=== PATIENT | male | born 1955 | race Caucasian/White ===

== ENCOUNTER 2018-05-02 09:30 | Emergency (ER) | payer BC, OTHER ==
[~2018-05-02] VITALS: Ht 185.4 cm; Wt 88.5 kg
[~2018-05-02 09:30] MED LIST: AMLO5TAB13 PO; LISI-275 PO
[2018-05-02] MEDS ORDERED: SODIUM CHLORIDE 0.9% 500 ML IVB ONE (10:27)
[2018-05-02] MEDS ORDERED: KETOROLAC TROMETH 30 MG/ML 1ML VIAL IV ONE (10:30)
[2018-05-02 11:31] LABS: Urine Bacteria NONE SEEN /hpf (None Seen); Urine Blood Negative /uL (Negative); Urine Mucus FEW (None Seen); Urine WBC 3 /hpf (0 - 3)
[2018-05-02 11:48] LABS: Basophils # (auto) 0.1 uL; Basophils % (auto) 0.9 % (0.0-2.0); Eosinophils # (auto) 0 uL; Eosinophils % (auto) 0.4 % (0.0-7.0); Hematocrit 52.6 % (41.0-53.0); Hemoglobin 17.3 g/dL (13.5-17.5); Lymphocytes # (auto) 0.6 uL; Lymphocytes % (auto) 5.2 % (10.0-50.0); Mean Corpuscular Hemoglobin 30.4 pg (28.0-32.0); Mean Corpuscular Hgb Conc. 32.8 g/dL (32.0-36.0); Mean Corpuscular Volume 92.6 fL (80.0-100.0); Monocytes # (auto) 1.8 uL; Monocytes % (auto) 16.4 % (0.0-12.0); Neutrophils # (auto) 8.6 uL; Neutrophils % (auto) 77.1 % (37.0-80.0); Platelet Count (auto) 203 10^3/uL (140-450); Red Blood Cells 5.68 10^6/uL (4.5-5.90); Red Cell Distribution Width 16.3 % (11.8-14.3); White Blood Cell 11.2 10^3/uL (4.4-10.8)
[2018-05-02 12:27] LABS: Potassium 3.9 mmol/L (3.5-5.1)
[2018-05-02 12:28] LABS: Albumin 3.4 g/dL (3.4-5.0); BUN/Creatinine Ratio 18.9; Bilirubin, Total 0.9 mg/dL (0.2-1.0); Calcium 8.5 mg/dL (8.5-10.1); Total Protein 7.1 g/dL (6.4-8.2)
[2018-05-02] MEDS ORDERED: KETOROLAC TROMETH 60MG/2ML VIAL IM ONE ×2 (13:24→13:30)
[2018-05-02 13:37] VITALS: BP 145/94
== END 2018-05-02 14:13 | disposition home or self-care (01) ==
LOC: ER 09:30
DX: M54.5 Low back pain (principal); J44.9 Chronic obstructive pulmonary disease, unspecified; F12.90 Cannabis use, unspecified, uncomplicated; R11.0 Nausea; R50.9 Fever, unspecified; Z79.899 Other long term (current) drug therapy
CPT/HCPCS: 36415; 74176; 80053; 81001; 83690; 84484; 85025; 93005; 96372; 99285; J1885; J7030

== ENCOUNTER 2019-01-12 02:13 | Inpatient (IN) | payer BC ==
[~2019-01-12] VITALS: Ht 185.4 cm; Wt 110.2 kg
[2019-01-12] MEDS ORDERED: ALBUTEROL SULF 2.5 MG/0.5ML(0.5%) NEB SOLN HHN STA (02:27)
[2019-01-12] MEDS ORDERED: IPRATROPIUM BROM 0.5 MG/2.5ML INH SOL NEB ONE (02:30)
[2019-01-12 03:38] LABS: Hematocrit 41.4 % (41.0-53.0); Hemoglobin 13.2 g/dL (13.5-17.5); Mean Corpuscular Hemoglobin 27.3 pg (28.0-32.0); Mean Corpuscular Volume 85.5 fL (80.0-100.0); Platelet Count (auto) 145 10^3/uL (140-450); Red Blood Cells 4.84 10^6/uL (4.5-5.90); Red Cell Distribution Width 19.3 % (11.8-14.3); White Blood Cell 10.6 10^3/uL (4.4-10.8)
[2019-01-12 03:43] LABS: Band Neutrophils % (manual) 0; Basophils % (manual) 0 (0.0-2.0); Blast Cells 0; Eosinophils % (manual) 0 (0-7); Metamyelocytes % 0; Myelocytes % 0; Promyelocytes % 0; Reactive Lymphocytes 0
[2019-01-12 03:56] LABS: Albumin 3.3 g/dL (3.4-5.0); Anion Gap 7 (5-15); Blood Urea Nitrogen 53 mg/dL (7-18); Carbon Dioxide 31 mmol/L (21-32); Chloride 108 mmol/L (98-107); Glucose 112 mg/dL (74-106); Potassium 4.4 mmol/L (3.5-5.1); Sodium 146 mmol/L (136-145)
[2019-01-12 03:58] LABS: Alanine Aminotransferase 62 U/L (16-61); Aspartate Aminotransferase 44 U/L (15-37); BUN/Creatinine Ratio 34.9; GFR African American 60 mL/min; GFR Non-African American 49 mL/min
[2019-01-12 04:01] LABS: Alkaline Phosphatase 129 U/L (45-117); Bilirubin, Total 0.9 mg/dL (0.2-1.0); Total Protein 6.3 g/dL (6.4-8.2)
[2019-01-12 04:09] LABS: Lymphocytes % (manual) 4 (10.0-50.0); Monocytes % (manual) 3 (0-12)
[2019-01-12 04:44] LABS: Urine Bacteria NONE SEEN /hpf (None Seen); Urine Blood Negative /uL (Negative); Urine Specific Gravity 1.009 (1.001-1.035); Urine WBC <1 /hpf (0 - 3)
[2019-01-12] MEDS ORDERED: cefTRIAXone 1GM/50ML D5W 50 ML IV ONE (07:30)
[2019-01-12] MEDS ORDERED: FUROSEMIDE 40 MG/4 ML VIAL IV ONE (07:30)
[2019-01-12] MEDS ORDERED: AZITHROMYCIN 500MG/ 250ML 250 ML IV ONE (07:30)
[2019-01-12] MEDS ORDERED: DIGOXIN (250MCG/ML) 2 ML AMPULE IV ONE (08:30)
[2019-01-12] MEDS ORDERED: NITROGLYCERIN 0.4 MG SL TAB SL PRN (08:30)
[2019-01-12] MEDS ORDERED: ONDANSETRON HCL 4 MG/2 ML VIAL IV PRN (08:30)
[2019-01-12] MEDS ORDERED: MORPHINE SULF INJ 2 MG/ML SYRINGE 1ML IV PRN (08:30)
[2019-01-12] MEDS ORDERED: ACETAMINOPHEN 500 MG TAB PO PRN (08:30)
[2019-01-12] MEDS ORDERED: ALBUTEROL SULF 2.5 MG/0.5ML(0.5%) NEB SOLN ONE (08:39)
[2019-01-12] MEDS ORDERED: BUDESONIDE (INHALATION) 0.5 MG/2 ML NEB ONE (08:39)
[2019-01-12] MEDS ORDERED: IPRATROPIUM BROM 0.5 MG/2.5ML INH SOL ONE (08:39)
[2019-01-12 09:08] LABS: Alcohol, Urine < 3.0 mg/dL (0-5); Amphetamine Screen, Urine POSITIVE (NEGATIVE); Barbiturate Scree,Urine NEGATIVE (NEGATIVE); Benzodiazephine Screen, Urine NEGATIVE (NEGATIVE); Cannabinoid Screen, Urine POSITIVE (NEGATIVE); Cocaine Screen, Urine NEGATIVE (NEGATIVE); Phencyclidine Screen, Urine NEGATIVE (NEGATIVE)
[2019-01-12 09:16] LABS: Opiate Scree,Urine NEGATIVE (NEGATIVE)
[2019-01-12] MEDS: cefTRIAXone 1GM/50ML D5W 50 ML IV SCH (09:28)
[2019-01-12 09:35] VITALS: BP 131/90
[2019-01-12] MEDS: FUROSEMIDE 20 MG/2 ML VIAL IV SCH (09:52)
[2019-01-12] MEDS ORDERED: IPRATROPIUM BROM 0.5 MG/2.5ML INH SOL NEB SCH (10:00)
[2019-01-12] MEDS ORDERED: ALBUTEROL SULF 2.5 MG/0.5ML(0.5%) NEB SOLN NEB SCH (10:00)
[2019-01-12 10:30] VITALS: BP 124/105
[2019-01-12] MEDS: FAMOTIDINE 20 MG TAB PO SCH (11:00)
[2019-01-12] MEDS: ASPirin 81 mg TAB PO SCH (11:00)
[2019-01-12] MEDS: amLODIPine BESYLATE 5 MG TAB PO SCH (11:01)
[2019-01-12] MEDS: CARVEDILOL 3.125 MG TAB PO SCH ×2 (11:01→22:00)
[2019-01-12 13:45] VITALS: BP 130/90
[2019-01-12] MEDS ORDERED: BUMETANIDE 2.5mg/10ml (0.25 mg/ml) INJ IV ONE (16:00)
[2019-01-12 16:45] VITALS: BP 112/77
[2019-01-12] MEDS: RIVAROXABAN 20 MG TAB PO SCH (19:26)
[2019-01-12 19:50] VITALS: BP 121/61
--- NOTE | 2019-01-12 19:50 | NUR ---
NO IV ACCESS Received report fro DIANE Chung that patient has no IV access. After one attempt by DIANE Chung and one attempt by this RN, Charge nurse, DIANE Gonzalez was notified and will attempt to obtain IV access.
--- NOTE | 2019-01-12 19:50 | NUR ---
Opening Shift Note Assumed care of patient, awake and alert. Currently on 4lpm via NC with No S/S of distress/SOB. Patient reports 7/10 back pain described to be chronic. Declines pain medication at this time. Discussed POC with patient and instructed to call for assist PRN. Bed is in low locked position with side rails up x2. Will continue to monitor for changes Q1hr and PRN.
[2019-01-12 21:30] VITALS: BP 121/81
--- NOTE | 2019-01-12 21:31 | NUR ---
SOB Patient c/o SOB. Nasal cannula is currently off. Replaced N/C and instructed patient to sit up at edge of bed. Spo2 is 92% on 4lpm. Expiratory rhonchi noted. RT notified. Neb treatment to be administered at 2200.
--- NOTE | 2019-01-12 22:00 | NUR ---
Patient is laying comfortably in bed on 4lpm O2 via N/C. Reports that SOB has resolved. Encouraged to call for assistance if needed. Call hargrove is within reach.
[2019-01-12] MEDS: BUDESONIDE (INHALATION) 0.5 MG/2 ML NEB NEB SCH (22:03)
--- NOTE | 2019-01-13 01:30 | NUR ---
Patient agitated. Removed gown, laboratory monitor, Nasal canula and pressure dressing on right forearm covering a failed IV insertion site. POC discussed with patient. Patient cleaned and placed in clean gown. monitoring coordinator and N/C replaced. New pressure dressing applied and linens changed. Agitation is lessening. Will continue to monitor and reinforce POC with patient.
[2019-01-13] MEDS ORDERED: ALBUTEROL SULF 2.5 MG/0.5ML(0.5%) NEB SOLN NEB PRN (02:00)
[2019-01-13] MEDS ORDERED: IPRATROPIUM BROM 0.5 MG/2.5ML INH SOL NEB PRN (02:00)
--- NOTE | 2019-01-13 02:10 | NUR ---
IV insertion IV access obtained by DIANE Calvo, via clean sterile technique by inserting 22 gauge catheter at right hand and 20 guage at left forearm. IVs secured properly. No trauma to site. Patient tolerated well.
[2019-01-13] MEDS: HYDROcodone-ACET 5/325MG TAB PO PRN ×2 (02:59→20:34)
--- NOTE | 2019-01-13 03:30 | NUR ---
Patient confused and mildly agitated. Out of bed and sitting in chair, after removing gown, night monitor and nasal cannula. Patient reoriented to POC. night monitor and nasal canula replaced, new gown placed on patient and linens changed. Agitation has decreased at this time.
--- NOTE | 2019-01-13 04:25 | NUR ---
Patient resting in chair at bedside. No s/s of SOB or distress. No agitation noted at this time. Will continue to monitor PRN.
[2019-01-13 04:30] VITALS: BP 114/69
[2019-01-13 07:40] LABS: INR 1.29 (0.9-1.15); Partial Thromboplastin Time 29.6 sec (23.64-32.05)
--- NOTE | 2019-01-13 07:45 | NUR ---
OPENING NOTE Assumed care of patient from NOC RN, Rupal. Patient awake and alert with no S/S of distress/SOB or pain. Nasal cannula in place, connected to 3L O2. Instructed on POC and to call for assist PRN, verbalized understanding. Bed in lowest, locked position with side rails up x2 and call light within reach. Will continue to monitor for changes Q1hr and PRN.
[2019-01-13 07:46] LABS: Basophils # (auto) 0.1 uL; Basophils % (auto) 0.6 % (0.0-2.0); Eosinophils # (auto) 0.2 uL; Eosinophils % (auto) 2.1 % (0.0-7.0); Hematocrit 37.4 % (41.0-53.0); Lymphocytes # (auto) 0.4 uL; Lymphocytes % (auto) 4.5 % (10.0-50.0); Mean Corpuscular Hemoglobin 27.1 pg (28.0-32.0); Mean Corpuscular Hgb Conc. 32.1 g/dL (32.0-36.0); Mean Corpuscular Volume 84.4 fL (80.0-100.0); Monocytes # (auto) 1.1 uL; Monocytes % (auto) 13.2 % (0.0-12.0); Neutrophils # (auto) 6.6 uL; Neutrophils % (auto) 79.6 % (37.0-80.0); Nucleated Red Blood Cells % 0.1 %; Platelet Count (auto) 115 10^3/uL (140-450); Red Blood Cells 4.43 10^6/uL (4.5-5.90); Red Cell Distribution Width 18.7 % (11.8-14.3); White Blood Cell 8.3 10^3/uL (4.4-10.8)
[2019-01-13 07:48] LABS: BUN/Creatinine Ratio 35.2
[2019-01-13 09:00] VITALS: BP 139/95
[2019-01-13] MEDS: BUDESONIDE (INHALATION) 0.5 MG/2 ML NEB NEB SCH ×2 (09:28→22:42)
--- NOTE | 2019-01-13 09:52 | NUR ---
FRENCH POLISHER Patient is becoming very anxious regarding procedure and is angry about not being able to eat. Spoke with Christina in lab coordinator regarding estimated procedure time, states should be around 1200. Patient informed.
[2019-01-13] MEDS: CARVEDILOL 3.125 MG TAB PO SCH ×2 (10:00→21:52)
[2019-01-13] MEDS: cefTRIAXone 1GM/50ML D5W 50 ML IV SCH (10:02)
[2019-01-13] MEDS: SACUBITRIL-VALSARTAN 24mg/26mg TAB PO SCH ×2 (10:03→21:50)
[2019-01-13] MEDS: FUROSEMIDE 20 MG/2 ML VIAL IV SCH (10:03)
[2019-01-13] MEDS: FAMOTIDINE 20 MG TAB PO SCH (10:03)
[2019-01-13] MEDS: amLODIPine BESYLATE 5 MG TAB PO SCH (10:03)
[2019-01-13] MEDS: ASPirin 81 mg TAB PO SCH (10:04)
--- NOTE | 2019-01-13 10:10 | NUR ---
BLEED Right arm scab bleeding. Applied gauze and coban to arm. Will continue to monitor.
--- NOTE | 2019-01-13 10:52 | NUR ---
OFF UNIT Patient taken off unit via bed for scheduled ADAM/Cardioversion. No S/S of distress noted.
[2019-01-13] MEDS ORDERED: LIDOCAINE VISCOUS 2% 15ML UD PO ONE (11:15)
[2019-01-13] MEDS ORDERED: fentaNYL CITRATE 100 MCG/2 ML VL IV ONE (11:15)
[2019-01-13] MEDS ORDERED: MIDAZOLAM HCL 1MG/1ML-2 ML VIAL IV ONE (11:15)
[2019-01-13] MEDS ORDERED: MIDAZOLAM HCL 1MG/1ML-2 ML VIAL ONE (11:38)
[2019-01-13] MEDS ORDERED: ATROPINE SULFATE 1 MG/1 ML VIAL ONE (12:22)
--- NOTE | 2019-01-13 13:33 | NUR ---
RETURN TO UNIT Patient returned to unit via bed. Patient is currently resting with eyes closed, even rise and fall of chest noted. No S/S of distress/SOB or pain. Nasal cannula in position, connected to 4L O2. Will continue to monitor.
[2019-01-13] MEDS: AZITHROMYCIN 250 MG TAB PO SCH (14:13)
[2019-01-13 17:00] VITALS: BP 125/92
[2019-01-13] MEDS: RIVAROXABAN 20 MG TAB PO SCH (18:08)
--- NOTE | 2019-01-13 18:45 | NUR ---
MD STEWARD Paged Dr. Sumner regarding patient heart rhythm, A-Fib, in the mid 90's to low 100's. Awaiting call back Addendum: 01/13/19 at 1854 by RITA GREEN RN Assessed patient, sitting in bedside chair. No S/S of distress noted. Nasal cannula in place, connected to 4L O2. Will continue to monitor.
--- NOTE | 2019-01-13 19:02 | NUR ---
AWARE Dr. Sumner aware of heart rhythm. New orders received.
--- NOTE | 2019-01-13 19:09 | NUR ---
CLOSING NOTE Endorsed care of patient to NOC Nicholas CONTRERAS. Aware of new order for EKG.
--- NOTE | 2019-01-13 19:12 | NUR ---
RECEIVED PATIENT LYING IN BED, AWAKE, ALERT, ORIENTED X4. NO S/S OF RESPIRATORY DISTRESS, DENIES SOB AND CHEST PAIN. ORIENTED ON PLAN OF CARE, BED IS LOCKED AND IN LOWEST LEVEL, SIDE RAILS UP X2, CALL LIGHT WITHIN REACH. WILL CONTINUE TO MONITOR
--- NOTE | 2019-01-13 20:00 | NUR ---
12 LEAD EKG DONE, SEEN AND SIGNED BY PRITI CHINCHILLA; ABNORMAL EKG BUT NOT AMI. NO NEW ORDER RECEIVED
[2019-01-13] MEDS: MORPHINE SULF INJ 2 MG/ML SYRINGE 1ML IV PRN (21:39)
[2019-01-13] MEDS: AMIODARONE HCL 200 MG TAB PO SCH (21:51)
[2019-01-13 22:00] VITALS: BP 133/96
--- NOTE | 2019-01-14 00:47 | NUR ---
MRSA NASAL SWAB SAMPLE SENT TO LAB
[2019-01-14] MEDS: MORPHINE SULF INJ 2 MG/ML SYRINGE 1ML IV PRN (01:20)
[2019-01-14] MEDS: HYDROcodone-ACET 5/325MG TAB PO PRN (02:23)
--- NOTE | 2019-01-14 03:16 | NUR ---
PATIENT OFF TELE PATIENT KEEPS ON PULLING OFF HIS TELE LEADS, EXPLAINED THE IMPORTANCE OF TELEMETRY MONITORING, STATES HE DOES NOT LIKE IT FOR NOW
[2019-01-14 04:30] VITALS: BP 110/65
--- NOTE | 2019-01-14 07:26 | NUR ---
CARE ENDORSED TO AM SHIFT RN
[2019-01-14 08:00] VITALS: BP 121/79
--- NOTE | 2019-01-14 08:00 | NUR ---
Opening note Assumed care of patient awake and alert. No S/S of distress noted or complaints of pain. Pt is on 4L NC satting at 96%. Pt updated on POC for the day and all questions answered. Bed is in lowest, locked position with side rails up x2 and call light within reach. Will continue to monitor Q1h and PRN.
--- NOTE | 2019-01-14 08:20 | NUR ---
IV removal Right hand IV DC'd with sterile technique, catheter fully intact. Pressure dressing applied to site. Patient tolerated procedure well.
[2019-01-14 08:21] VITALS: BP 106/71
[2019-01-14] MEDS: cefTRIAXone 1GM/50ML D5W 50 ML IV SCH (09:21)
[2019-01-14] MEDS: amLODIPine BESYLATE 5 MG TAB PO SCH (09:39)
[2019-01-14] MEDS: AZITHROMYCIN 250 MG TAB PO SCH (10:18)
[2019-01-14] MEDS: SACUBITRIL-VALSARTAN 24mg/26mg TAB PO SCH (10:18)
[2019-01-14] MEDS: CARVEDILOL 3.125 MG TAB PO SCH (10:18)
[2019-01-14] MEDS: AMIODARONE HCL 200 MG TAB PO SCH (10:18)
[2019-01-14] MEDS: ASPirin 81 mg TAB PO SCH (10:18)
[2019-01-14] MEDS: FUROSEMIDE 20 MG/2 ML VIAL IV SCH (10:19)
[2019-01-14] MEDS: BUDESONIDE (INHALATION) 0.5 MG/2 ML NEB NEB SCH (10:27)
[2019-01-14] MEDS: FAMOTIDINE 20 MG TAB PO SCH (10:41)
--- NOTE | 2019-01-14 12:15 | NUR ---
ROUNDS Dr Crandall at bedside for rounds, new orders received and followed through. Patient updated on plan of care, verbalized understanding.
[2019-01-14 13:16] VITALS: BP 106/71
[2019-01-14 13:27] LABS: Albumin 2.9 g/dL (3.4-5.0); Calcium 7.7 mg/dL (8.5-10.1); Potassium 4.9 mmol/L (3.5-5.1)
[2019-01-14 13:31] LABS: Bilirubin, Total 0.5 mg/dL (0.2-1.0); Total Protein 5.6 g/dL (6.4-8.2)
[2019-01-14 13:42] LABS: Eosinophils # (auto) 0.2 uL; Eosinophils % (auto) 1.8 % (0.0-7.0); Hemoglobin 12.4 g/dL (13.5-17.5); White Blood Cell 8.6 10^3/uL (4.4-10.8)
[2019-01-14 13:44] LABS: Basophils # (auto) 0 uL; Basophils % (auto) 0.5 % (0.0-2.0); Hematocrit 40.1 % (41.0-53.0); Lymphocytes # (auto) 0.4 uL; Lymphocytes % (auto) 5.1 % (10.0-50.0); Mean Corpuscular Hgb Conc. 30.9 g/dL (32.0-36.0); Mean Corpuscular Volume 87.4 fL (80.0-100.0); Monocytes # (auto) 1.5 uL; Monocytes % (auto) 17.4 % (0.0-12.0); Neutrophils # (auto) 6.5 uL; Neutrophils % (auto) 75.2 % (37.0-80.0); Platelet Count (auto) 139 10^3/uL (140-450); Red Blood Cells 4.59 10^6/uL (4.5-5.90); Red Cell Distribution Width 19.5 % (11.8-14.3)
--- NOTE | 2019-01-14 14:36 | NUR ---
Discharge instructions given as ordered. Encourage to follow up with PMD as instructed. All questions and concerns addressed. Patient verbalized understanding. Medication reconciliation form completed and copy given to patient. IV removed with catheter intact, pressure dressing applied. Telemetry unit returned to ICU. Patient awaiting family for transportation, portable home O2 and clean clothes.
--- NOTE | 2019-01-14 15:27 | NUR ---
Patient taken to vehicle via wheelchair with all personal belongings and portable home O2, accompanied by staff and family member. No distress noted at time of departure.
[2019-01-15] MEDS ORDERED: AMIO200T33 PO (17:10)
[2019-01-15] MEDS ORDERED: FURO40TA PO (17:10)
[2019-01-15] MEDS ORDERED: OXY20CRT PO (17:10)
[2019-01-15] MEDS ORDERED: SACU1TAB PO (17:10)
[2019-01-15] MEDS ORDERED: POTA-167 PO (17:10)
[2019-01-15] MEDS ORDERED: RIVA20TA PO (17:10)
[2019-01-15] MEDS ORDERED: HYDR-4798 PO (17:10)
== END 2019-01-14 15:39 | disposition home or self-care (01) | DRG 291 ==
LOC: EDBD 02:13 → ER 02:18 → TELE 02:19 → TELE-EAST 10:40
PROVIDERS: ADMIT Nurse Practitioner Acute Care; ATTEND Internal Medicine
PROC: 5A2204Z Restoration of Cardiac Rhythm, Single (ICD-10-PCS; principal; 2019-01-13)
PROC: B24BZZ4 Ultrasonography of Heart with Aorta, Transesophageal (ICD-10-PCS; 2019-01-13)
DX: I13.0 Hypertensive heart and chronic kidney disease with heart failure and stage 1 through stage 4 chronic kidney disease, or unspecified chronic kidney disease (principal); J96.00 Acute respiratory failure, unspecified whether with hypoxia or hypercapnia; I50.43 Acute on chronic combined systolic (congestive) and diastolic (congestive) heart failure; J69.0 Pneumonitis due to inhalation of food and vomit; N17.0 Acute kidney failure with tubular necrosis; J44.1 Chronic obstructive pulmonary disease with (acute) exacerbation; I48.92 Unspecified atrial flutter; E44.1 Mild protein-calorie malnutrition; I47.1 Supraventricular tachycardia; D63.8 Anemia in other chronic diseases classified elsewhere; F15.10 Other stimulant abuse, uncomplicated; I45.4 Nonspecific intraventricular block; I48.91 Unspecified atrial fibrillation; N18.9 Chronic kidney disease, unspecified; E66.9 Obesity, unspecified; Z79.899 Other long term (current) drug therapy; Z82.49 Family history of ischemic heart disease and other diseases of the circulatory system; Z83.2 Family history of diseases of the blood and blood-forming organs and certain disorders involving the immune mechanism; Z87.11 Personal history of peptic ulcer disease; Z91.19 Patient's noncompliance with other medical treatment and regimen; Z87.891 Personal history of nicotine dependence; Z91.14 Patient's other noncompliance with medication regimen; Z68.32 Body mass index [BMI] 32.0-32.9, adult
CPT/HCPCS: 36415; 71045; 80048; 80053; 80307; 81001; 83605; 83880; 84443; 84484; 85007; 85025; 85027; 85610; 85730; 87040; 87081; 93005; 93312; 94640; 96365; 96367; 96375; 99152; G0378; J0461; J0696; J2250; J2405

== ENCOUNTER 2019-01-15 04:25 | Inpatient (IN) | payer BC ==
[~2019-01-15] VITALS: Ht 188 cm; Wt 117.0 kg
[~2019-01-15 04:25] MED LIST changes: -LISI-275 PO
[2019-01-15] MEDS ORDERED: ALBUTEROL SULF 2.5 MG/0.5ML(0.5%) NEB SOLN NEB ONE (05:22)
[2019-01-15] MEDS ORDERED: IPRATROPIUM BROM 0.5 MG/2.5ML INH SOL NEB ONE (05:22)
[2019-01-15 07:05] LABS: Albumin 2.6 g/dL (3.4-5.0); Anion Gap 7 (5-15); Blood Urea Nitrogen 57 mg/dL (7-18); Calcium 7.4 mg/dL (8.5-10.1); Carbon Dioxide 28 mmol/L (21-32); Chloride 106 mmol/L (98-107); Glucose 97 mg/dL (74-106); Sodium 141 mmol/L (136-145)
[2019-01-15 07:07] LABS: Alanine Aminotransferase 44 U/L (16-61); Aspartate Aminotransferase 45 U/L (15-37); BUN/Creatinine Ratio 31.1; GFR African American 48 mL/min; GFR Non-African American 40 mL/min
[2019-01-15 07:15] LABS: Alkaline Phosphatase 134 U/L (45-117); Bilirubin, Total 0.5 mg/dL (0.2-1.0); Total Protein 5.2 g/dL (6.4-8.2)
[2019-01-15 07:19] LABS: Potassium 5.6 mmol/L (3.5-5.1)
[2019-01-15 07:29] LABS: Urine Bacteria NONE SEEN /hpf (None Seen); Urine Blood Negative /uL (Negative); Urine Mucus FEW (None Seen); Urine Specific Gravity 1.023 (1.001-1.035); Urine WBC 1 /hpf (0 - 3)
[2019-01-15] MEDS ORDERED: CALCIUM GLUC 4.65meq/50ml D5AE 50 ML IV ONE (08:45)
[2019-01-15] MEDS ORDERED: SODIUM BICARBONATE 8.4 % INJ 50ML VIAL IV ONE (08:45)
[2019-01-15] MEDS ORDERED: MORPHINE SULF INJ 2 MG/ML SYRINGE 1ML IV PRN (09:45)
[2019-01-15] MEDS ORDERED: NITROGLYCERIN 0.4 MG SL TAB SL PRN (09:45)
[2019-01-15] MEDS ORDERED: ACETAMINOPHEN 500 MG TAB PO PRN (09:45)
[2019-01-15] MEDS ORDERED: LACTULOSE 20Gm/30ML SOLN PO PRN (09:45)
[2019-01-15] MEDS ORDERED: ZOLPIDEM TARTRATE 5 MG TAB PO PRN (09:45)
[2019-01-15] MEDS ORDERED: PROMETHAZINE HCL 25 MG/ML 1ML IV PRN (09:45)
[2019-01-15] MEDS ORDERED: traMADol HCL 50 MG TAB PO PRN (09:45)
[2019-01-15] MEDS ORDERED: ALBUTEROL SULF 2.5 MG/0.5ML(0.5%) NEB SOLN NEB PRN (09:45)
[2019-01-15] MEDS ORDERED: ENALAPRIL MALEATE 2.5 MG TAB PO SCH (10:00)
[2019-01-15] MEDS ORDERED: PATIENTS OWN MEDICATION (xarelto 20 MG) PO SCH (10:00)
[2019-01-15 10:41] LABS: Hematocrit 40.7 % (41.0-53.0); Hemoglobin 12.8 g/dL (13.5-17.5); Mean Corpuscular Hemoglobin 27.2 pg (28.0-32.0); Mean Corpuscular Hgb Conc. 31.6 g/dL (32.0-36.0); Mean Corpuscular Volume 86.2 fL (80.0-100.0); Platelet Count (auto) 126 10^3/uL (140-450); Red Blood Cells 4.72 10^6/uL (4.5-5.90); Red Cell Distribution Width 19.1 % (11.8-14.3); White Blood Cell 9.7 10^3/uL (4.4-10.8)
[2019-01-15] MEDS: AMIODARONE HCL 200 MG TAB PO SCH (10:41)
[2019-01-15] MEDS: LEVOFLOXACIN 500MG 100 ML IV SCH (10:41)
[2019-01-15] MEDS: FUROSEMIDE 40 MG/4 ML VIAL IV SCH ×2 (10:41→17:33)
[2019-01-15] MEDS: ASPirin 81 mg TAB PO SCH (10:41)
[2019-01-15] MEDS: PANTOPRAZOLE 40 MG TAB PO SCH (10:42)
[2019-01-15] MEDS: CARVEDILOL 3.125 MG TAB PO SCH ×2 (10:42→21:34)
[2019-01-15] MEDS: NITROGLYCERIN 0.2MG/HR TOPICAL PATCH TD SCH (10:43)
[2019-01-15 10:45] LABS: Basophils % (manual) 0 (0.0-2.0); Blast Cells 0; Metamyelocytes % 0; Myelocytes % 0; Promyelocytes % 0; Reactive Lymphocytes 0
[2019-01-15] MEDS: IPRATROPIUM BROM 0.5 MG/2.5ML INH SOL NEB SCH ×2 (11:08→19:09)
[2019-01-15] MEDS: ALBUTEROL SULF 2.5 MG/0.5ML(0.5%) NEB SOLN NEB SCH ×2 (11:08→19:09)
[2019-01-15 12:53] VITALS: BP 112/68
[2019-01-15 12:59] LABS: BUN/Creatinine Ratio 30.2; Calcium 7.9 mg/dL (8.5-10.1); Potassium 4.4 mmol/L (3.5-5.1)
[2019-01-15 13:01] LABS: Alcohol, Urine < 3.0 mg/dL (0-5); Amphetamine Screen, Urine POSITIVE (NEGATIVE); Barbiturate Scree,Urine NEGATIVE (NEGATIVE); Benzodiazephine Screen, Urine POSITIVE (NEGATIVE); Cannabinoid Screen, Urine POSITIVE (NEGATIVE); Cocaine Screen, Urine NEGATIVE (NEGATIVE)
[2019-01-15 13:08] LABS: Opiate Scree,Urine NEGATIVE (NEGATIVE); Phencyclidine Screen, Urine NEGATIVE (NEGATIVE)
[2019-01-15 13:46] LABS: Band Neutrophils % (manual) 8; Lymphocytes % (manual) 11 (10.0-50.0); Monocytes % (manual) 12 (0-12)
[2019-01-15 13:47] LABS: Eosinophils % (manual) 1 (0-7)
[2019-01-15] MEDS: CLINDAMYCIN 600MG IV 50 ML IV SCH ×2 (14:20→21:33)
[2019-01-15] MEDS: SODIUM CHLOR 0.9% PF (SALINE LOCK) 10ML VIAL/SYR IV SCH ×2 (14:20→21:33)
--- NOTE | 2019-01-15 15:30 | NUR ---
Telemetry admit from ER MARTHA LAWRENCE admitted to Telemetry unit after SBAR received. Patient oriented to Ashlee guillen RN and Caron Hurley RN, unit, room, bed, and unit policies regarding patient care and visiting hours. Patient now on continuous telemetry monitoring, tele box # 41. Patient placed on bed side oxygen, weighed by bed scale and encouraged to call if they need something. All questions and concerns addressed, patient verbalized understanding. Instructed patient on POC, fall precautions and to call for assistance as needed. Fall precautions in place with bed in lowest locked position with x2 side rails up and call light within reach.
[2019-01-15 17:00] VITALS: BP 109/59
[2019-01-15] MEDS ORDERED: HYDR-4798 PO (17:10)
[2019-01-15] MEDS ORDERED: FURO40TA PO (17:10)
[2019-01-15] MEDS ORDERED: OXY20CRT PO (17:10)
[2019-01-15] MEDS ORDERED: POTA-167 PO (17:10)
[2019-01-15] MEDS ORDERED: AMIO200T33 PO (17:10)
[2019-01-15] MEDS ORDERED: SACU1TAB PO (17:10)
[2019-01-15] MEDS ORDERED: RIVA20TA PO (17:10)
--- NOTE | 2019-01-15 17:11 | NUR ---
RE: Home medications Patient stated "I never got a chance to fill my prescriptions. I was back at the hospital within 12 hour of discharge. I need my oxy and Dustin's filled though. I got prescribed those from my primary, Dr. Melendez, because my kidneys were hurting." Med rec updated per patient's medical record and patient's report.
--- NOTE | 2019-01-15 17:11 | NUR ---
MRSA swab collected & sent to lab per MD's order.
--- NOTE | 2019-01-15 17:13 | NUR ---
Fall precautions note Patient assessed and determined to be fall risk. Fall precautions in place, including side rails up X 2, fall risk wristband in place. Patient instructed to call staff regarding any needs involving getting out of bed or bathroom needs. Patient verbalized understanding. Patient sitting in chair at bedside.
--- NOTE | 2019-01-15 17:17 | NUR ---
Specimen cup given to patient for stool occult Instructed patient on MD's order. Patient verbalized understanding. Patient denies a productive cough at this time.
[2019-01-15] MEDS ORDERED: RIVAROXABAN 20 MG TAB PO SCH (18:00)
--- NOTE | 2019-01-15 19:25 | NUR ---
Opening Shift Note Received report from porter Rosado RN. Assumed care of patient, awake and alert. RT at bedside giving breathing treatments. Patient c/o pain to back. Will give pain medication as ordered. Instructed on POC and to call for assist PRN, will continue to monitor for changes Q1hr and PRN. Safety Precautions, bed locked and in lowest position, call light within reach.
[2019-01-15 20:00] VITALS: BP 97/56
[2019-01-15 21:30] VITALS: BP 91/56
[2019-01-15] MEDS ORDERED: ATORVASTATIN 20 MG TAB PO SCH (22:00)
[2019-01-15] MEDS ORDERED: HYDROcodone-ACET 10/325MG TAB PO PRN (23:00)
[2019-01-16] MEDS: IPRATROPIUM BROM 0.5 MG/2.5ML INH SOL NEB SCH ×2 (00:06→06:17)
[2019-01-16] MEDS: ALBUTEROL SULF 2.5 MG/0.5ML(0.5%) NEB SOLN NEB SCH ×2 (00:06→06:17)
[2019-01-16 04:54] VITALS: BP 108/68
[2019-01-16 05:07] LABS: Hemoglobin 11.4 g/dL (13.5-17.5); Mean Corpuscular Volume 85.7 fL (80.0-100.0)
[2019-01-16 05:08] LABS: Hematocrit 35.6 % (41.0-53.0); Mean Corpuscular Hemoglobin 27.4 pg (28.0-32.0); Platelet Count (auto) 129 10^3/uL (140-450); Red Blood Cells 4.15 10^6/uL (4.5-5.90); Red Cell Distribution Width 19.2 % (11.8-14.3); White Blood Cell 6.8 10^3/uL (4.4-10.8)
[2019-01-16 05:30] LABS: Basophils % (manual) 0 (0.0-2.0); Blast Cells 0; Eosinophils % (manual) 0 (0-7); Metamyelocytes % 0; Myelocytes % 0; Promyelocytes % 0; Reactive Lymphocytes 0
[2019-01-16] MEDS: CLINDAMYCIN 600MG IV 50 ML IV SCH (05:52)
[2019-01-16] MEDS: FUROSEMIDE 40 MG/4 ML VIAL IV SCH (05:52)
[2019-01-16] MEDS: SODIUM CHLOR 0.9% PF (SALINE LOCK) 10ML VIAL/SYR IV SCH (05:53)
--- NOTE | 2019-01-16 06:21 | NUR ---
Patient is resting in bed with eyes closed. No distress noted, saturating at 96% on 4LNC. Denies pain at this time.
[2019-01-16 06:26] LABS: Band Neutrophils % (manual) 1; Lymphocytes % (manual) 6 (10.0-50.0); Monocytes % (manual) 10 (0-12)
[2019-01-16 06:27] LABS: Albumin 2.6 g/dL (3.4-5.0); Anion Gap 8 (5-15); Blood Urea Nitrogen 50 mg/dL (7-18); Calcium 7.4 mg/dL (8.5-10.1); Carbon Dioxide 30 mmol/L (21-32); Chloride 103 mmol/L (98-107); Glucose 101 mg/dL (74-106); Potassium 4.6 mmol/L (3.5-5.1); Sodium 141 mmol/L (136-145)
[2019-01-16 06:29] LABS: Alanine Aminotransferase 39 U/L (16-61); Aspartate Aminotransferase 24 U/L (15-37); BUN/Creatinine Ratio 31.3; GFR African American 56 mL/min; GFR Non-African American 47 mL/min
[2019-01-16 06:32] LABS: Alkaline Phosphatase 119 U/L (45-117); Bilirubin, Total 0.6 mg/dL (0.2-1.0); Total Protein 5.1 g/dL (6.4-8.2)
--- NOTE | 2019-01-16 06:47 | NUR ---
PATIENT IS ALERT AND ORIENTED, SITTING AT BEDSIDE TALKING ON THE PHONE. PATIENT IS OFF-TELE BUT PATIENT IS REFUSING IT. PATIENT STATES HE IS THINKING OF LEAVING AMA TO GO TO [place] BECAUSE HIS DAD IS DYING. WILL PASS IT ON TO THE DAY RN.
--- NOTE | 2019-01-16 07:30 | NUR ---
Opening Shift Note Assuming care of patient at this time. Patient is resting in bed, refusing to wear gown or let me assess his skin. Patient is fully clothed in pants and shirt. Patient states that he has chronic back pain. Patient appears to be short of breath. Instructed patient to put oxygen on. He states, "I just took it off." Patient is now wearing oxygen at 2L. Instructed patient on the plan of care. Patient states that he wants to leave because, "my dad is dying." Bed is locked and lowered with side rails up x2. Will continue to round hourly as needed.
--- NOTE | 2019-01-16 07:45 | NUR ---
Call from Mother Mother received a call from the hospital. Mother is wondering if the nurse called, instructed her that patient most likely was the one who called. Mother states that she has a lot going on with her "dying on hospice". Mother states that she cannot take care of both her son and her . Mother is questioning if has been to visit. Did not give her any information regarding . Mother states that patient has some mental issues and is always in and out the hospital. Mother states that and daughter also have mental issues and, "they all need help." Spoke with mother approximately 5 minutes, when asked if she wanted to be transferred to the patient's room, stated to tell patient "I don't have time to talk." Will inform patient.
--- NOTE | 2019-01-16 08:00 | NUR ---
Refusing Tele Patient is refusing to wear tele monitor. Patient states that, "my heart is fine."
--- NOTE | 2019-01-16 08:30 | NUR ---
Patient at nurse's station Patient is at nurse's station wanting help to call . Called 4 times with patient holding the phone, while this nurse dialed. No answer.
[2019-01-16 09:00] VITALS: BP 106/74
--- NOTE | 2019-01-16 09:09 | NUR ---
Call to Call to patient's , Tracy per patient's request. Mailbox is full, unable to leave a message.
--- NOTE | 2019-01-16 09:36 | NUR ---
Re: Call light Patient is calling asking us to contact his . Violet Carson, called number he provided, the call went straight to voicemail and the mailbox is currently full.
[2019-01-16] MEDS: ASPirin 81 mg TAB PO SCH (10:00)
[2019-01-16] MEDS ORDERED: ENALAPRIL MALEATE 2.5 MG TAB PO SCH (10:00)
[2019-01-16] MEDS: AMIODARONE HCL 200 MG TAB PO SCH (10:00)
[2019-01-16] MEDS: NITROGLYCERIN 0.2MG/HR TOPICAL PATCH TD SCH (10:00)
[2019-01-16] MEDS: LEVOFLOXACIN 500MG 100 ML IV SCH (10:00)
[2019-01-16] MEDS: PANTOPRAZOLE 40 MG TAB PO SCH (10:00)
[2019-01-16] MEDS: CARVEDILOL 3.125 MG TAB PO SCH (10:00)
--- NOTE | 2019-01-16 10:40 | NUR ---
at bedside Dr. Brar at bedside. Patient expressing that he needs to leave to get home and check on his and step-father. Dr. Brar instructed patient and this RN to have him sign against medical advice.
--- NOTE | 2019-01-16 11:30 | NUR ---
Call to [employer] Cab Call to [employer] at this time. The sales route driver is going to be "leaving now." Notified sales route driver to call when they on location.
--- NOTE | 2019-01-16 11:55 | NUR ---
MARTHA THAKUR states they want to leave the hospital Against Medical Advice (AMA). Patient encouraged to stay for further treatment/stabilization. Remigio Brar MD notified of patient's wishes. Patient advised of the risks and benefits of leaving AMA. Patient verbalized understanding. Patient encouraged to return to the ER if symptoms do not improve or worsen. IV removed with catheter intact, pressure dressing applied. Telemetry unit returned to [facility]. Patient taken to vehicle via wheelchair with all personal belongings, accompanied by this RN. No distress noted at time of departure. Patient states that he does not need oxygen to go home, even though he uses oxygen at home.
== END 2019-01-16 11:55 | disposition left against medical advice (07) | DRG 291 ==
LOC: ER 04:25 → EDBD 04:25 → TELE 04:26 → TELE-CENTR 15:30
PROVIDERS: ADMIT Internal Medicine; ATTEND Internal Medicine
DX: I13.0 Hypertensive heart and chronic kidney disease with heart failure and stage 1 through stage 4 chronic kidney disease, or unspecified chronic kidney disease (principal); J96.20 Acute and chronic respiratory failure, unspecified whether with hypoxia or hypercapnia; I50.23 Acute on chronic systolic (congestive) heart failure; N17.9 Acute kidney failure, unspecified; J44.1 Chronic obstructive pulmonary disease with (acute) exacerbation; L03.116 Cellulitis of left lower limb; L03.115 Cellulitis of right lower limb; I48.92 Unspecified atrial flutter; R18.8 Other ascites; E87.5 Hyperkalemia; N18.3 Chronic kidney disease, stage 3 (moderate); Z53.21 Procedure and treatment not carried out due to patient leaving prior to being seen by health care provider; I48.91 Unspecified atrial fibrillation; F17.210 Nicotine dependence, cigarettes, uncomplicated; F15.10 Other stimulant abuse, uncomplicated; E66.9 Obesity, unspecified; Z68.33 Body mass index [BMI] 33.0-33.9, adult; Z88.8 Allergy status to other drugs, medicaments and biological substances; Z82.49 Family history of ischemic heart disease and other diseases of the circulatory system; Z82.5 Family history of asthma and other chronic lower respiratory diseases; Z87.11 Personal history of peptic ulcer disease; Z79.899 Other long term (current) drug therapy
CPT/HCPCS: 36415; 36600; 71045; 71250; 80048; 80053; 80307; 81001; 82805; 83735; 83880; 84484; 85007; 85027; 85379; 87081; 93005; 94640; G0378; J0610; J1956; J3490

== ENCOUNTER 2019-03-14 14:06 | Inpatient (IN) | payer BC ==
[~2019-03-14] VITALS: Ht 185.4 cm; Wt 100.0 kg
[~2019-03-14 14:06] MED LIST changes: +AMIO200T33 PO; -AMLO5TAB13 PO; +AMLO5TAB15 PO; +FURO1TAB31 PO; +HYDR-4798 PO; +OXY20CRT PO; +POTA-167 PO; +RIVA20TA PO; +SACU1TAB PO; +[UNRECOGNIZED DRUG - CODE] PO
[2019-03-14] MEDS ORDERED: FUROSEMIDE 40 MG/4 ML VIAL IV ONE (14:45)
[2019-03-14 15:35] LABS: Mean Corpuscular Hemoglobin 22.3 pg (28.0-32.0)
[2019-03-14 15:40] LABS: Hematocrit 29.3 % (41.0-53.0); Hemoglobin 8.9 g/dL (13.5-17.5); Mean Corpuscular Hgb Conc. 30.5 g/dL (32.0-36.0); Mean Corpuscular Volume 73.2 fL (80.0-100.0); Platelet Count (auto) 252 10^3/uL (140-450); Red Blood Cells 4.01 10^6/uL (4.5-5.90)
[2019-03-14 15:42] LABS: Albumin 3.4 g/dL (3.4-5.0); BUN/Creatinine Ratio 17.7; Basophils % (manual) 0 (0.0-2.0); Blast Cells 0; Calcium 7.9 mg/dL (8.5-10.1); Metamyelocytes % 0; Myelocytes % 0; Potassium 4.7 mmol/L (3.5-5.1); Promyelocytes % 0; Reactive Lymphocytes 0; Red Cell Distribution Width 22.6 % (11.8-14.3)
[2019-03-14 15:46] LABS: Bilirubin, Total 0.6 mg/dL (0.2-1.0); Total Protein 6.2 g/dL (6.4-8.2)
[2019-03-14 15:50] LABS: INR 1.2 (0.9-1.15); Partial Thromboplastin Time 27.9 sec (23.64-32.05)
[2019-03-14 16:05] LABS: Urine Bacteria NONE SEEN /hpf (None Seen); Urine Blood Negative /uL (Negative); Urine Hyaline Cast FEW /lpf (0 - 2); Urine Specific Gravity 1.007 (1.001-1.035); Urine WBC 4 /hpf (0 - 3)
[2019-03-14] MEDS ORDERED: MORPHINE SULF INJ 2 MG/ML SYRINGE 1ML IV PRN (17:45)
[2019-03-14] MEDS ORDERED: cefTRIAXone 1GM/50ML D5W 50 ML IV ONE (17:45)
[2019-03-14] MEDS ORDERED: ACETAMINOPHEN 500 MG TAB PO PRN (17:45)
[2019-03-14] MEDS ORDERED: MORPHINE SULFATE 4 MG/ML SYR/VIAL IV PRN (17:45)
[2019-03-14] MEDS ORDERED: NITROGLYCERIN 0.4 MG SL TAB SL PRN (17:45)
[2019-03-14] MEDS ORDERED: PROMETHAZINE HCL 25 MG/ML 1ML IV PRN (17:45)
[2019-03-14] MEDS ORDERED: ALBUTEROL SULF 2.5 MG/0.5ML(0.5%) NEB SOLN NEB PRN (17:45)
[2019-03-14] MEDS: IPRATROPIUM BROM 0.5 MG/2.5ML INH SOL NEB SCH (18:10)
[2019-03-14] MEDS: ALBUTEROL SULF 2.5 MG/0.5ML(0.5%) NEB SOLN NEB SCH (18:10)
[2019-03-14] MEDS: RIVAROXABAN 20 MG TAB PO SCH (18:12)
[2019-03-14 18:19] LABS: Alcohol, Urine < 3.0 mg/dL (0-5); Amphetamine Screen, Urine POSITIVE (NEGATIVE); Barbiturate Scree,Urine NEGATIVE (NEGATIVE); Benzodiazephine Screen, Urine NEGATIVE (NEGATIVE); Cannabinoid Screen, Urine POSITIVE (NEGATIVE); Cocaine Screen, Urine NEGATIVE (NEGATIVE); Opiate Scree,Urine NEGATIVE (NEGATIVE); Phencyclidine Screen, Urine NEGATIVE (NEGATIVE)
[2019-03-14 18:54] LABS: Band Neutrophils % (manual) 3; Eosinophils % (manual) 1 (0-7); Lymphocytes % (manual) 10 (10.0-50.0); Monocytes % (manual) 6 (0-12)
--- NOTE | 2019-03-14 20:45 | NUR ---
Telemetry admit from ER MARTHA LAWRENCE admitted to Telemetry unit. Patient oriented to TASHA RODRIGUEZ O[facility], primary RN, unit, room, bed, and unit policies regarding patient care and visiting hours. Patient now on continuous telemetry monitoring, tele box #64 and telemetry reading on arrival to unit is Sinus greg 57. Patient placed on bedside oxygen, weighed by bedscale and encouraged to call if they need something. All questions and concerns addressed, patient verbalized understanding. Bed in lowest locked position, call light within reach, side rails up x2. Will continue to monitor Q1hr and PRN.
--- NOTE | 2019-03-14 21:50 | NUR ---
Respiratory culture collected and sent to lab
[2019-03-14] MEDS: AMIODARONE HCL 200 MG TAB PO SCH (21:51)
[2019-03-14] MEDS: SACUBITRIL-VALSARTAN 24mg/26mg TAB PO SCH (21:51)
[2019-03-14] MEDS: GENTAMICIN OPTH sol 0.3% 5ml EACHEYE SCH (21:51)
[2019-03-14] MEDS: SODIUM CHLOR 0.9% PF (SALINE LOCK) 10ML VIAL/SYR IV SCH (21:52)
[2019-03-14] MEDS: oxyCODONE ER 10 MG TAB PO SCH (21:52)
[2019-03-14 22:00] VITALS: BP 135/85
[2019-03-15] VITALS (7 sets, daily range): BP systolic 100–122; BP diastolic 50–76
[2019-03-15] MEDS: ALBUTEROL SULF 2.5 MG/0.5ML(0.5%) NEB SOLN NEB SCH ×4 (00:50→19:00)
[2019-03-15] MEDS: IPRATROPIUM BROM 0.5 MG/2.5ML INH SOL NEB SCH ×4 (00:51→19:00)
[2019-03-15] MEDS: GENTAMICIN OPTH sol 0.3% 5ml EACHEYE SCH ×6 (02:03→22:30)
[2019-03-15] MEDS: SODIUM CHLOR 0.9% PF (SALINE LOCK) 10ML VIAL/SYR IV SCH ×3 (06:03→22:30)
--- NOTE | 2019-03-15 07:35 | NUR ---
Opening Shift Note Assumed care of patient currently sleeping, currently on 3L via NC, breathing even and unlabored. No S/S of distress/SOB or pain reported at this time. Instructed on POC and to call for assist PRN, bed alarm on and call light within reach, will continue to monitor for changes Q1hr and PRN.
[2019-03-15 08:54] LABS: Basophils # (auto) 0.1 uL; Eosinophils # (auto) 0.1 uL; Hemoglobin 9.1 g/dL (13.5-17.5); Lymphocytes # (auto) 0.9 uL; Nucleated Red Blood Cells % 0.1 %
[2019-03-15 08:57] LABS: Basophils % (auto) 1.3 % (0.0-2.0); Eosinophils % (auto) 1.2 % (0.0-7.0); Lymphocytes % (auto) 10.7 % (10.0-50.0); Mean Corpuscular Hemoglobin 22.1 pg (28.0-32.0); Mean Corpuscular Hgb Conc. 30.3 g/dL (32.0-36.0); Mean Corpuscular Volume 72.8 fL (80.0-100.0); Monocytes # (auto) 1.3 uL; Monocytes % (auto) 15.1 % (0.0-12.0); Neutrophils # (auto) 5.9 uL; Neutrophils % (auto) 71.7 % (37.0-80.0); Platelet Count (auto) 243 10^3/uL (140-450); Red Blood Cells 4.12 10^6/uL (4.5-5.90); White Blood Cell 8.3 10^3/uL (4.4-10.8)
[2019-03-15 08:58] LABS: Albumin 3.2 g/dL (3.4-5.0); BUN/Creatinine Ratio 17.9; Calcium 7.8 mg/dL (8.5-10.1)
[2019-03-15 09:00] LABS: Bilirubin, Total 0.6 mg/dL (0.2-1.0); Total Protein 5.9 g/dL (6.4-8.2)
[2019-03-15 09:17] LABS: Red Cell Distribution Width 22.9 % (11.8-14.3)
[2019-03-15] MEDS ORDERED: NITROGLYCERIN 0.2MG/HR TOPICAL PATCH TD SCH (10:00)
[2019-03-15] MEDS: AMIODARONE HCL 200 MG TAB PO SCH ×2 (10:00→22:30)
--- NOTE | 2019-03-15 10:55 | NUR ---
NEPHROLOGY DR HYDE AT BEDSIDE, DISCUSSING POC WITH PT, NEW ORDERS ENTERED BY MD, PT INSTRUCTED BY MD TO FOLLOW UP IN 2 WEEKS POST DC, CONT CARE
[2019-03-15] MEDS: POTASSIUM CHL 10 Meq TABLET PO SCH (11:05)
[2019-03-15] MEDS: cefTRIAXone 1GM/50ML D5W 50 ML IV SCH (11:05)
[2019-03-15] MEDS: oxyCODONE ER 10 MG TAB PO SCH ×2 (11:06→22:30)
[2019-03-15] MEDS: amLODIPine BESYLATE 5 MG TAB PO SCH (11:08)
[2019-03-15] MEDS: PANTOPRAZOLE 40 MG TAB PO SCH (11:08)
[2019-03-15] MEDS: FUROSEMIDE 40 MG/4 ML VIAL IV SCH (11:08)
[2019-03-15 11:54] LABS: Creatinine, Urine 31 mg/dL (30.0-125.0); Sodium Urine 92 mmol/L (40-220)
[2019-03-15] MEDS ORDERED: MORPHINE SULFATE 4 MG/ML SYR/VIAL IV PRN (13:45)
[2019-03-15] MEDS: RIVAROXABAN 20 MG TAB PO SCH (18:42)
[2019-03-15] MEDS: SACUBITRIL-VALSARTAN 24mg/26mg TAB PO SCH ×2 (18:42→22:30)
--- NOTE | 2019-03-15 19:40 | NUR ---
Opening Shift Note Assumed care of patient, awake and alert. No S/S of distress/SOB or pain. Instructed on POC and to call for assist PRN. Bed in lowest locked position, call light within reach, side rails up x2. Will continue to monitor for changes Q1hr and PRN.
--- NOTE | 2019-03-15 22:31 | NUR ---
NOC Med Entresto PO BID held at this time as patient received entresto at 1840. Too soon to administer med at this time. BP 118/74. Will continue care.
[2019-03-16] MEDS: IPRATROPIUM BROM 0.5 MG/2.5ML INH SOL NEB SCH ×4 (00:05→18:33)
[2019-03-16] MEDS: ALBUTEROL SULF 2.5 MG/0.5ML(0.5%) NEB SOLN NEB SCH ×4 (00:05→18:33)
[2019-03-16] MEDS: GENTAMICIN OPTH sol 0.3% 5ml EACHEYE SCH ×6 (03:15→22:37)
[2019-03-16 05:00] VITALS: BP 111/70
[2019-03-16] MEDS: SODIUM CHLOR 0.9% PF (SALINE LOCK) 10ML VIAL/SYR IV SCH ×3 (06:00→22:37)
[2019-03-16 06:10] LABS: Basophils # (auto) 0.1 uL; Eosinophils # (auto) 0.1 uL
[2019-03-16 06:13] LABS: Basophils % (auto) 1.4 % (0.0-2.0); Eosinophils % (auto) 1.5 % (0.0-7.0); Hematocrit 29.5 % (41.0-53.0); Lymphocytes % (auto) 14.1 % (10.0-50.0); Mean Corpuscular Hemoglobin 22.1 pg (28.0-32.0); Mean Corpuscular Hgb Conc. 30.6 g/dL (32.0-36.0); Mean Corpuscular Volume 72.3 fL (80.0-100.0); Monocytes # (auto) 1.1 uL; Nucleated Red Blood Cells % 0.2 %; Platelet Count (auto) 251 10^3/uL (140-450); Red Blood Cells 4.08 10^6/uL (4.5-5.90); White Blood Cell 7.3 10^3/uL (4.4-10.8)
[2019-03-16 06:19] LABS: Red Cell Distribution Width 22.8 % (11.8-14.3)
[2019-03-16 06:27] LABS: Albumin 3.3 g/dL (3.4-5.0); BUN/Creatinine Ratio 18.9; Calcium 7.9 mg/dL (8.5-10.1); Potassium 4.3 mmol/L (3.5-5.1)
[2019-03-16 06:30] LABS: Bilirubin, Total 0.7 mg/dL (0.2-1.0)
--- NOTE | 2019-03-16 07:20 | NUR ---
Opening Shift Note Assumed care of patient, awake and alert and oriented x4. No S/S of distress/SOB or pain reported at this time, currently on 3L via NC. Instructed on POC and to call for assist PRN, call light within reach, will continue to monitor for changes Q1hr and PRN.
[2019-03-16 08:00] VITALS: BP 134/79
--- NOTE | 2019-03-16 09:19 | NUR ---
PT REPORTS THAT HE WALKS FINE AND DOES NOT NEED P.T.
[2019-03-16 09:30] VITALS: BP 134/79
[2019-03-16] MEDS: PANTOPRAZOLE 40 MG TAB PO SCH (09:49)
[2019-03-16] MEDS: oxyCODONE ER 10 MG TAB PO SCH ×2 (09:49→21:05)
[2019-03-16] MEDS: SACUBITRIL-VALSARTAN 24mg/26mg TAB PO SCH ×2 (09:50→21:05)
[2019-03-16] MEDS: amLODIPine BESYLATE 5 MG TAB PO SCH (09:50)
[2019-03-16] MEDS: POTASSIUM CHL 10 Meq TABLET PO SCH (09:50)
[2019-03-16] MEDS: cefTRIAXone 1GM/50ML D5W 50 ML IV SCH (09:51)
[2019-03-16] MEDS: AMIODARONE HCL 200 MG TAB PO SCH ×2 (09:51→21:05)
[2019-03-16] MEDS: FUROSEMIDE 40 MG/4 ML VIAL IV SCH (09:51)
--- NOTE | 2019-03-16 09:55 | NUR ---
AT BEDSIDE DR LAYNE AT BEDSIDE, DISCUSSING POC WITH PT, CONT CARE
[2019-03-16] MEDS ORDERED: AZITHROMYCIN 500MG/ 250ML 250 ML IV ONE (11:15)
[2019-03-16] MEDS ORDERED: MAGNESIUM SULFATE 1GM/100ML 100 ML IV ONE (11:15)
[2019-03-16 12:00] VITALS: BP 118/76
--- NOTE | 2019-03-16 13:52 | NUR ---
SPOKE WITH XOCHITL MARTÍNEZ REGARDING ASSISTING PT WITH LOCAL PROVIDER
[2019-03-16 16:54] VITALS: BP 112/68
[2019-03-16] MEDS: RIVAROXABAN 20 MG TAB PO SCH (18:00)
--- NOTE | 2019-03-16 19:30 | NUR ---
Opening Shift Note Assumed care of patient, awake and alert x4. Patient denies pain at this time. Patient is on 3L NC, no S/S of distress or shortness of breath noted at this time. Instructed on plan of care and to call for assistance as needed. Bed is locked in lowest position, side rails x 2 are up, and call light is within reach.
[2019-03-16 22:00] VITALS: BP 109/55
[2019-03-17] MEDS: IPRATROPIUM BROM 0.5 MG/2.5ML INH SOL NEB SCH ×5 (00:46→23:55)
[2019-03-17] MEDS: ALBUTEROL SULF 2.5 MG/0.5ML(0.5%) NEB SOLN NEB SCH ×5 (00:46→23:55)
[2019-03-17] MEDS: GENTAMICIN OPTH sol 0.3% 5ml EACHEYE SCH ×6 (02:05→21:25)
[2019-03-17 05:00] VITALS: BP 118/84
[2019-03-17] MEDS: SODIUM CHLOR 0.9% PF (SALINE LOCK) 10ML VIAL/SYR IV SCH ×3 (05:49→21:24)
[2019-03-17 08:00] VITALS: BP 108/71
[2019-03-17 09:00] VITALS: BP 108/71
[2019-03-17] MEDS: amLODIPine BESYLATE 5 MG TAB PO SCH (09:22)
[2019-03-17] MEDS: SACUBITRIL-VALSARTAN 24mg/26mg TAB PO SCH ×2 (09:22→21:24)
[2019-03-17] MEDS: AMIODARONE HCL 200 MG TAB PO SCH ×2 (09:23→21:24)
[2019-03-17] MEDS: oxyCODONE ER 10 MG TAB PO SCH ×2 (09:23→21:24)
[2019-03-17] MEDS: PANTOPRAZOLE 40 MG TAB PO SCH (09:23)
[2019-03-17] MEDS: POTASSIUM CHL 10 Meq TABLET PO SCH (09:23)
[2019-03-17] MEDS: FUROSEMIDE 40 MG/4 ML VIAL IV SCH (09:24)
[2019-03-17 09:27] LABS: Hemoglobin 8.6 g/dL (13.5-17.5)
[2019-03-17] MEDS: AZITHROMYCIN 500MG/ 250ML 250 ML IV SCH (09:29)
[2019-03-17] MEDS: cefTRIAXone 1GM/50ML D5W 50 ML IV SCH (09:29)
[2019-03-17 09:32] LABS: Hematocrit 28.6 % (41.0-53.0)
[2019-03-17 09:46] LABS: Albumin 3.5 g/dL (3.4-5.0); BUN/Creatinine Ratio 17.9; Calcium 8.1 mg/dL (8.5-10.1); Magnesium 2.3 mg/dL (1.6-2.6); Potassium 4.5 mmol/L (3.5-5.1)
[2019-03-17 09:48] LABS: Bilirubin, Total 0.6 mg/dL (0.2-1.0); Total Protein 6.4 g/dL (6.4-8.2)
--- NOTE | 2019-03-17 11:10 | NUR ---
MD DR LAYNE AT BEDSIDE, DISCUSSING POC, PLAN TO KEEP HIM COUPLE MORE DAYS TO TO MANAHE HIS CHF, CONT CARE
[2019-03-17 13:00] VITALS: BP 97/61
--- NOTE | 2019-03-17 15:50 | NUR ---
IV insertion IV access obtained, via clean sterile technique by inserting 22 gauge catheter at Left FA after a attempt. IV secured properly. No trauma to site. Patient tolerated well.
[2019-03-17 17:00] VITALS: BP 122/73
[2019-03-17] MEDS: RIVAROXABAN 20 MG TAB PO SCH (18:02)
[2019-03-17 21:35] VITALS: BP 118/68
[2019-03-18] MEDS: IPRATROPIUM BROM 0.5 MG/2.5ML INH SOL NEB SCH ×2 (00:01→12:58)
[2019-03-18] MEDS: ALBUTEROL SULF 2.5 MG/0.5ML(0.5%) NEB SOLN NEB SCH ×2 (00:01→12:58)
[2019-03-18] MEDS: GENTAMICIN OPTH sol 0.3% 5ml EACHEYE SCH ×4 (02:17→14:40)
[2019-03-18 04:46] VITALS: BP 117/70
[2019-03-18] MEDS: SODIUM CHLOR 0.9% PF (SALINE LOCK) 10ML VIAL/SYR IV SCH (05:54)
--- NOTE | 2019-03-18 07:26 | NUR ---
OPENING NOTE Assumed care of patient from NOC RNYaima. Patient awake and alert with no S/S of distress/SOB or pain. Nasal cannula in position, connected to 3L O2. Instructed on POC and to call for assist PRN, verbalized understanding. Bed in lowest, locked position with side rails up x2 and call light within reach. Will continue to monitor for changes Q1hr and PRN.
[2019-03-18 07:51] LABS: BUN/Creatinine Ratio 18.9; Calcium 8.7 mg/dL (8.5-10.1); Magnesium 2.4 mg/dL (1.6-2.6); Potassium 4.7 mmol/L (3.5-5.1)
[2019-03-18 09:00] VITALS: BP 106/69
[2019-03-18] MEDS: FUROSEMIDE 40 MG/4 ML VIAL IV SCH (09:40)
[2019-03-18] MEDS: cefTRIAXone 1GM/50ML D5W 50 ML IV SCH (09:40)
[2019-03-18] MEDS: SACUBITRIL-VALSARTAN 24mg/26mg TAB PO SCH (09:41)
[2019-03-18] MEDS: AZITHROMYCIN 500MG/ 250ML 250 ML IV SCH ×2 (09:41→11:58)
[2019-03-18] MEDS: AMIODARONE HCL 200 MG TAB PO SCH (09:41)
[2019-03-18] MEDS: PANTOPRAZOLE 40 MG TAB PO SCH (09:42)
[2019-03-18] MEDS: amLODIPine BESYLATE 5 MG TAB PO SCH (09:42)
[2019-03-18] MEDS: oxyCODONE ER 10 MG TAB PO SCH (09:42)
--- NOTE | 2019-03-18 10:20 | NUR ---
IV Infiltrated IV removed, catheter intact and pressure dressing applied. New IV access obtained, via clean sterile technique by inserting 22 gauge catheter at left AC after 4 attempts. IV secured properly. No trauma to site. Patient tolerated well.
[2019-03-18 10:36] VITALS: BP 106/69
--- NOTE | 2019-03-18 12:17 | NUR ---
Nutrition Assessment Notes please see attached link for complete assessment Est. Needs BW (100 kg): 5650-3078 kcal (23-25 kcal/kgBW), 80-100 gms pro (0.8-1.0 gms/kgBW r/t elev RFT CKD). Will continue to monitor pertinent labs and reassess nutrient need prn Addendum: 03/18/19 at [address] Amended: Links added.
[2019-03-18 13:00] VITALS: BP 112/69
--- NOTE | 2019-03-18 15:22 | NUR ---
IV Entered patient's room to find a towel wrapped around left arm. Per patient, "the IV site was bleeding so I started messing with it and it accidently fell out". IV unit found on floor with catheter intact. Applied pressure dressing to area.
--- NOTE | 2019-03-18 16:30 | NUR ---
DISCHARGE Discharge instructions given as ordered. Encouraged to follow up with PMD as instructed. All questions and concerns addressed. Patient verbalized understanding. Medication reconciliation form completed and copy given to patient. Telemetry unit returned to ICU. Patient taken to vehicle via wheelchair with all personal belongings, accompanied by staff. No distress noted at time of departure.
[2019-03-19] MEDS ORDERED: AZITHROMYCIN 250 MG TAB PO SCH (10:00)
== END 2019-03-18 18:44 | disposition home or self-care (01) | DRG 682 ==
LOC: ER 14:06 → TELE 14:07 → TELE-WESTW 20:48
PROVIDERS: ADMIT Internal Medicine; ATTEND Internal Medicine
DX: N17.0 Acute kidney failure with tubular necrosis (principal); J18.9 Pneumonia, unspecified organism; J96.20 Acute and chronic respiratory failure, unspecified whether with hypoxia or hypercapnia; I50.43 Acute on chronic combined systolic (congestive) and diastolic (congestive) heart failure; I13.0 Hypertensive heart and chronic kidney disease with heart failure and stage 1 through stage 4 chronic kidney disease, or unspecified chronic kidney disease; N39.0 Urinary tract infection, site not specified; J44.1 Chronic obstructive pulmonary disease with (acute) exacerbation; E44.0 Moderate protein-calorie malnutrition; I48.92 Unspecified atrial flutter; J44.0 Chronic obstructive pulmonary disease with (acute) lower respiratory infection; I42.0 Dilated cardiomyopathy; N17.9 Acute kidney failure, unspecified; F17.210 Nicotine dependence, cigarettes, uncomplicated; I48.0 Paroxysmal atrial fibrillation; I70.0 Atherosclerosis of aorta; N18.3 Chronic kidney disease, stage 3 (moderate); R00.1 Bradycardia, unspecified; H10.9 Unspecified conjunctivitis; E66.01 Morbid (severe) obesity due to excess calories; D63.8 Anemia in other chronic diseases classified elsewhere; F90.9 Attention-deficit hyperactivity disorder, unspecified type; G47.33 Obstructive sleep apnea (adult) (pediatric); D50.9 Iron deficiency anemia, unspecified; Z79.01 Long term (current) use of anticoagulants; Z79.899 Other long term (current) drug therapy; Z82.5 Family history of asthma and other chronic lower respiratory diseases; Z87.11 Personal history of peptic ulcer disease; Z99.81 Dependence on supplemental oxygen; Z90.49 Acquired absence of other specified parts of digestive tract; Z88.8 Allergy status to other drugs, medicaments and biological substances; Z68.29 Body mass index [BMI] 29.0-29.9, adult
CPT/HCPCS: 36415; 71045; 76775; 80048; 80053; 80061; 80307; 81001; 82270; 82550; 82570; 83735; 83880; 84300; 84443; 84484; 85007; 85014; 85018; 85025; 85027; 85610; 85730; 87070; 87086; 87205; 94640; G0378; J0696

== ENCOUNTER 2019-04-14 04:04 | Inpatient (IN) | payer BC ==
[~2019-04-14] VITALS: Ht 185.4 cm; Wt 114.1 kg
[~2019-04-14 04:04] MED LIST changes: -AMLO5TAB15 PO
[2019-04-14] MEDS ORDERED: ALBUTEROL SULF 2.5 MG/0.5ML(0.5%) NEB SOLN NEB STA (04:17)
[2019-04-14] MEDS ORDERED: IPRATROPIUM BROM 0.5 MG/2.5ML INH SOL NEB ONE (04:30)
[2019-04-14] MEDS ORDERED: FUROSEMIDE 40 MG/4 ML VIAL IV ONE (05:15)
[2019-04-14 06:38] LABS: Alanine Aminotransferase 28 U/L (16-61); Albumin 3.3 g/dL (3.4-5.0); Anion Gap 6 (5-15); Aspartate Aminotransferase 24 U/L (15-37); BUN/Creatinine Ratio 29.9; Blood Urea Nitrogen 70 mg/dL (7-18); Calcium 7.6 mg/dL (8.5-10.1); Carbon Dioxide 26 mmol/L (21-32); Chloride 108 mmol/L (98-107); GFR African American 36 mL/min; GFR Non-African American 30 mL/min; Glucose 123 mg/dL (74-106); Sodium 140 mmol/L (136-145)
[2019-04-14 06:41] LABS: Alkaline Phosphatase 129 U/L (45-117); Bilirubin, Total 0.5 mg/dL (0.2-1.0); Total Protein 6.3 g/dL (6.4-8.2)
[2019-04-14] MEDS ORDERED: methylPREDNISolone SOD SUCC 125 MG/2 ML VL IV ONE (07:00)
[2019-04-14 07:36] LABS: Hemoglobin 8.9 g/dL (13.5-17.5); Mean Corpuscular Hemoglobin 20.3 pg (28.0-32.0); Mean Corpuscular Hgb Conc. 28.6 g/dL (32.0-36.0); Platelet Count (auto) 57 10^3/uL (140-450); Red Blood Cells 4.37 10^6/uL (4.5-5.90)
[2019-04-14 07:42] LABS: Red Cell Distribution Width 23.8 % (11.8-14.3)
[2019-04-14 07:43] LABS: Band Neutrophils % (manual) 0; Basophils % (manual) 0 (0.0-2.0); Blast Cells 0; Eosinophils % (manual) 0 (0-7); Metamyelocytes % 0; Myelocytes % 0; Promyelocytes % 0; Reactive Lymphocytes 0
[2019-04-14 07:50] LABS: Lymphocytes % (manual) 3 (10.0-50.0); Monocytes % (manual) 5 (0-12)
[2019-04-14] MEDS ORDERED: AZITHROMYCIN 500MG/ 250ML 250 ML IV ONE (08:00)
[2019-04-14] MEDS ORDERED: cefTRIAXone 1GM/50ML D5W 50 ML IV ONE (08:00)
[2019-04-14 08:23] LABS: Urine WBC None Seen /hpf (0 - 3)
[2019-04-14 08:28] LABS: Urine Bacteria NONE SEEN /hpf (None Seen); Urine Blood Negative /uL (Negative); Urine Specific Gravity 1.007 (1.001-1.035)
[2019-04-14] MEDS ORDERED: LACTULOSE 20Gm/30ML SOLN PO PRN (10:45)
[2019-04-14] MEDS ORDERED: MORPHINE SULF INJ 2 MG/ML SYRINGE 1ML IV PRN (10:45)
[2019-04-14] MEDS ORDERED: ALBUTEROL SULF 2.5 MG/0.5ML(0.5%) NEB SOLN NEB PRN (10:45)
[2019-04-14] MEDS ORDERED: ACETAMINOPHEN 500 MG TAB PO PRN (10:45)
[2019-04-14] MEDS ORDERED: PROMETHAZINE HCL 25 MG/ML 1ML IV PRN (10:45)
[2019-04-14] MEDS ORDERED: NITROGLYCERIN 0.4 MG SL TAB SL PRN (10:45)
[2019-04-14] MEDS ORDERED: DEXTROSE (50%) 50ML SYRG IV PRN (10:45)
[2019-04-14 11:32] LABS: Lactic Acid w/Reflex 2.6 mmol/L (0.4-2.0)
[2019-04-14] MEDS: IPRATROPIUM BROM 0.5 MG/2.5ML INH SOL NEB SCH ×3 (11:49→23:57)
[2019-04-14] MEDS: ALBUTEROL SULF 2.5 MG/0.5ML(0.5%) NEB SOLN NEB SCH ×3 (11:49→23:57)
[2019-04-14 12:09] VITALS: BP 152/99
[2019-04-14] MEDS: ACCU-CHEK COMFORT CURVE STRIP VI SCH ×2 (12:26→18:03)
[2019-04-14] MEDS: DOXYCYCLINE 100MG/250ML 250 ML IV SCH ×2 (12:35→21:53)
[2019-04-14] MEDS: traMADol HCL 50 MG TAB PO PRN ×2 (12:36→19:42)
--- NOTE | 2019-04-14 13:00 | NUR ---
CAME ON WC FROM ER, ALERT AND ORIENTED X4, NOT IN DISTRESS, WHEEZING LUNG SOUNDS IN BILATERAL LUNG LOBES, RR=20, SAT=91-94 ON O2 4L NC, SR R=68 ON TELE MONITOR, ABDOMEN SOFT WITH ACTIVE BS, LAST BM=04/13/19, XG=132 LUNCH TRAY PROVIDED AND TOLERATED 100%, TOLERATED URINAL WELL, CLEAR YELLOW URINE ON URINAL NOTED, SKIN INTACT WARM TO TOUCH, RADIAL AND PEDAL PULSES PALPABLE, RESTING ON BED, HEAD OF BED ELEVATED, BED ON LOW POSITION, RAILS UP X2, CALL LIGHT ON REACH, MRSA SCREEN SAMPLE SENT TO THE LAB ORDERED, WILL CONTINUE MENTORING.
[2019-04-14 13:08] VITALS: BP 143/81
[2019-04-14 13:12] LABS: Alcohol, Urine < 3.0 mg/dL (0-5); Amphetamine Screen, Urine NEGATIVE (NEGATIVE); Barbiturate Scree,Urine NEGATIVE (NEGATIVE); Benzodiazephine Screen, Urine NEGATIVE (NEGATIVE); Cannabinoid Screen, Urine POSITIVE (NEGATIVE); Cocaine Screen, Urine NEGATIVE (NEGATIVE); Opiate Scree,Urine NEGATIVE (NEGATIVE); Phencyclidine Screen, Urine NEGATIVE (NEGATIVE)
[2019-04-14] MEDS: SODIUM CHLOR 0.9% PF (SALINE LOCK) 10ML VIAL/SYR IV SCH ×2 (14:27→22:01)
[2019-04-14 16:40] VITALS: BP 139/89
[2019-04-14] MEDS: FUROSEMIDE 40 MG/4 ML VIAL IV SCH (18:03)
--- NOTE | 2019-04-14 19:20 | NUR ---
Opening Shift Note Assumed care of patient, awake and alert. Patient is sitting up in bed, A&O x4, on 4L NC. No S/S of distress or SOB at this time. Patient verbalized pain, localized to lower back rating it as an 8/10. Will assess and medicate as per order. Initial physical assessment completed, bilateral lung sounds auscultated, wheezing noted. Skin intact, no edema present. Instructed on POC and to call for assist PRN, will continue to monitor for changes Q1hr and PRN. Signed: 04/14/19 at 2001 by MILLY COUGHLIN <Co-Signature Required> Co-Signed: 04/14/19 at 2001 by NATHALIA CONNOR RN RN
--- NOTE | 2019-04-14 19:45 | NUR ---
NOT IN DISTRESS, DENIED PAIN, RESTING ON BED, REPORT WAS GIVEN TO THE PLASTICS FABRICATOR AND ASSEMBLER RN.
[2019-04-14] MEDS: oxyCODONE ER 10 MG TAB PO SCH (21:48)
[2019-04-14] MEDS: AMIODARONE HCL 200 MG TAB PO SCH (21:49)
[2019-04-14] MEDS: CARVEDILOL 3.125 MG TAB PO SCH (21:51)
[2019-04-14] MEDS: SACUBITRIL-VALSARTAN 24mg/26mg TAB PO SCH (21:52)
--- NOTE | 2019-04-14 22:00 | NUR ---
No known allergies per patient Upon medication administration allergies reviewed with patient. Patient states "Ibuprofen is not a true allergy, it just upsets my stomach, and I am not allergic to Lorazepam either" Signed: 04/14/19 at 2253 by MILLY COUGHLIN SN <Co-Signature Required> Co-Signed: 04/14/19 at 2253 by NATHALIA CONNOR RN RN
[2019-04-14 23:42] VITALS: BP 130/71
--- NOTE | 2019-04-14 23:57 | NUR ---
RT NOTE WOKE PT UP TO GIVE 0000 BREATHING TX PT STATED HE DID NOT WANT THE TREATMENT AT THIS TIME. NO DISTRESS NOTED. PT RESTING COMFORTABLY.
[2019-04-15] MEDS: ACCU-CHEK COMFORT CURVE STRIP VI SCH ×5 (00:11→22:45)
--- NOTE | 2019-04-15 00:13 | NUR ---
Report received from Marina Elias, to assume care.
--- NOTE | 2019-04-15 00:13 | NUR ---
ENDORSED CARE TO AMELIA RN. PATIENT RESTING IN BED COMFORTABLY, 4LNC IN PLACE, ONE PIECE EXPANSION MAKER HAND S/S OF PAIN/SOB OR DISCOMFORT. SIDE RAILS UPX2, ROOM FREE OF CLUTTER, CALL LIGHT WITHIN REACH.
--- NOTE | 2019-04-15 04:10 | NUR ---
Want to go home against medical advised and said he is worried for his mother that lives alone and 82 years old, signed the paper.
[2019-04-15 04:58] VITALS: BP 135/98
[2019-04-15] MEDS: SODIUM CHLOR 0.9% PF (SALINE LOCK) 10ML VIAL/SYR IV SCH ×3 (06:00→22:39)
[2019-04-15] MEDS: FUROSEMIDE 40 MG/4 ML VIAL IV SCH ×2 (06:00→17:30)
--- NOTE | 2019-04-15 06:10 | NUR ---
Called the Marcie Dominique and informed that her signed for living against medical advise and waiting for her to pick him up.
--- NOTE | 2019-04-15 07:35 | NUR ---
Report given to Marina Iniguez that the is still talking with the patient ,and to removed the i.v.line, tele box returned to tele room.
--- NOTE | 2019-04-15 08:30 | NUR ---
Opening Shift Note Assumed care of patient, awake and alert. No S/S of distress/SOB or pain. Instructed on POC and to call for assist PRN, will continue to monitor for changes Q1hr and PRN.
[2019-04-15 09:13] VITALS: BP 89/50
[2019-04-15] MEDS: oxyCODONE ER 10 MG TAB PO SCH (10:00)
[2019-04-15] MEDS: AMIODARONE HCL 200 MG TAB PO SCH ×2 (10:00→22:41)
[2019-04-15] MEDS: CARVEDILOL 3.125 MG TAB PO SCH (10:00)
[2019-04-15] MEDS: SACUBITRIL-VALSARTAN 24mg/26mg TAB PO SCH ×2 (10:00→22:43)
[2019-04-15] MEDS ORDERED: POTASSIUM CHL 20 Meq TABLET PO SCH (10:00)
[2019-04-15] MEDS: NITROGLYCERIN 0.2MG/HR TOPICAL PATCH TD SCH (10:00)
[2019-04-15] MEDS: DOXYCYCLINE 100MG/250ML 250 ML IV SCH ×2 (10:33→22:40)
[2019-04-15] MEDS: PANTOPRAZOLE 40 MG TAB PO SCH (10:34)
[2019-04-15 10:49] VITALS: BP 93/47
[2019-04-15] MEDS: IPRATROPIUM BROM 0.5 MG/2.5ML INH SOL NEB SCH ×3 (12:08→18:32)
[2019-04-15] MEDS: ALBUTEROL SULF 2.5 MG/0.5ML(0.5%) NEB SOLN NEB SCH ×3 (12:08→18:32)
[2019-04-15 13:00] VITALS: BP 113/67
[2019-04-15] MEDS ORDERED: OXYCODONE HCL 5MG TAB PO PRN (13:00)
[2019-04-15] MEDS: methylPREDNISolone SOD SUCC 125 MG/2 ML VL IV SCH ×2 (13:25→22:39)
[2019-04-15] MEDS: traMADol HCL 50 MG TAB PO PRN (13:40)
--- NOTE | 2019-04-15 14:44 | NUR ---
Spoke to Dr. Cormier regarding blood culture posive cocci in cluster, received new order from Dr. Choi noted and carried it out.
[2019-04-15] MEDS ORDERED: VANCOMYCIN 1GM/250ML 250 ML IV ONE ×2 (15:00)
[2019-04-15] MEDS ORDERED: VANCOMYCIN PER PHARMACY 0 MG IV SCH (15:00)
[2019-04-15 16:48] VITALS: BP 119/86
--- NOTE | 2019-04-15 17:16 | NUR ---
Midline Placement: Patient educated on need for midline placement. All risks and benefits explained and all questions and concerns addresses prior to procedure. 3FR 20cm midline inserted via RT BRACHIAL vein using Ultrasound. Sterile technique utilized. Blood return obtained from THE SINGLE lumen and flushed easily with NS using proper technique. Midline secured with saline lock; biodisc and occlusive dressing applied. Primary RN notified. Midline lot #[id number] INTERNAL LENGTH 20CM EXTERNAL LENGTH 0CM
[2019-04-15] MEDS: RIVAROXABAN 15 MG TAB PO SCH (17:30)
[2019-04-15 22:06] VITALS: BP 130/79
[2019-04-16] MEDS: ALBUTEROL SULF 2.5 MG/0.5ML(0.5%) NEB SOLN NEB SCH ×4 (00:27→19:55)
[2019-04-16] MEDS: IPRATROPIUM BROM 0.5 MG/2.5ML INH SOL NEB SCH ×4 (00:27→19:55)
[2019-04-16 05:00] VITALS: BP 123/68
--- NOTE | 2019-04-16 05:00 | NUR ---
Report received! DIANE flowers gave me report. Patient sleeping with no sign of distress. Has a NS with 5 liters and call light at reach. Will continue to monitor for changes Q1hr and PRN.
--- NOTE | 2019-04-16 05:00 | NUR ---
Endorsed care of pt to Laura CONTRERAS at this time.
[2019-04-16] MEDS: SODIUM CHLOR 0.9% PF (SALINE LOCK) 10ML VIAL/SYR IV SCH ×3 (06:13→22:28)
[2019-04-16] MEDS: ACCU-CHEK COMFORT CURVE STRIP VI SCH ×4 (06:13→23:53)
[2019-04-16] MEDS: FUROSEMIDE 40 MG/4 ML VIAL IV SCH ×2 (06:13→17:33)
[2019-04-16 07:28] LABS: BUN/Creatinine Ratio 31.4; Calcium 7.7 mg/dL (8.5-10.1)
--- NOTE | 2019-04-16 08:04 | NUR ---
Talked to Dr. Antonia Cormier, informed him of patients BUN of 86. No orders given.
[2019-04-16 09:10] VITALS: BP 121/67
[2019-04-16] MEDS: NITROGLYCERIN 0.2MG/HR TOPICAL PATCH TD SCH (10:00)
[2019-04-16] MEDS: DOXYCYCLINE 100MG/250ML 250 ML IV SCH ×2 (10:19→22:28)
[2019-04-16] MEDS: methylPREDNISolone SOD SUCC 125 MG/2 ML VL IV SCH ×2 (10:20→22:28)
[2019-04-16] MEDS: SACUBITRIL-VALSARTAN 24mg/26mg TAB PO SCH ×2 (10:20→22:33)
[2019-04-16] MEDS: POTASSIUM CHL 10 Meq TABLET PO SCH (10:21)
[2019-04-16] MEDS: AMIODARONE HCL 200 MG TAB PO SCH ×2 (10:21→22:28)
[2019-04-16] MEDS: PANTOPRAZOLE 40 MG TAB PO SCH (10:21)
--- NOTE | 2019-04-16 12:45 | NUR ---
Dr. Angel bedside with patient discussing plan of care. Doctor would like patient up and ambulating.
[2019-04-16 13:00] VITALS: BP_SYST 114; BP_SYST 162; BP_DIAS 69; BP_DIAS 75
--- NOTE | 2019-04-16 14:20 | NUR ---
Dr. Riggins bedside with patient discussing plan of care. Dr. Riggins also cleared for D/C
--- NOTE | 2019-04-16 14:59 | NUR ---
Talked to Dr. Angel, informed him patient ambulated with 4L O2 NC and returned to bed with mild SOB. Per Dr. Angel, patient is ok to D/C
--- NOTE | 2019-04-16 15:30 | NUR ---
Talked to Dr. Antonia Cormier, informed him patient has been cleared from both Riggins/Nephro and Stanley/Cardio. Patient is insistent on going home today, and said he may leave AMA. Per Dr. Cormier, he is a possible D/C tomorrow and will see patient then.
[2019-04-16 17:00] VITALS: BP 137/77
[2019-04-16] MEDS: RIVAROXABAN 15 MG TAB PO SCH (17:34)
[2019-04-16 17:43] LABS: Urine Bacteria NONE SEEN /hpf (None Seen); Urine Blood TRACE /uL (Negative); Urine Specific Gravity 1.016 (1.001-1.035); Urine WBC <1 /hpf (0 - 3)
[2019-04-16 17:59] LABS: Protein, Urine 16.3 mg/dL (0.0-11.9)
[2019-04-16] MEDS ORDERED: VANCOMYCIN 1GM/250ML 250 ML IV SCH (18:00)
--- NOTE | 2019-04-16 20:10 | NUR ---
Patient complained of stomach distress, gave Lactulose at this time, will continue to monitor
--- NOTE | 2019-04-16 21:20 | NUR ---
Patient still complained of abdominal gas, will page hospitalist
[2019-04-16 21:59] VITALS: BP 125/78
[2019-04-16] MEDS ORDERED: CALCIUM CARB 500 MG CHEW TAB PO PRN (22:00)
--- NOTE | 2019-04-16 22:00 | NUR ---
Spoke to Dr. Brar and updated on patient's status. Order received at this time, will carry out order
[2019-04-17] MEDS: IPRATROPIUM BROM 0.5 MG/2.5ML INH SOL NEB SCH ×3 (01:27→12:07)
[2019-04-17] MEDS: ALBUTEROL SULF 2.5 MG/0.5ML(0.5%) NEB SOLN NEB SCH ×3 (01:27→12:07)
[2019-04-17 05:35] VITALS: BP 124/85
[2019-04-17] MEDS: ACCU-CHEK COMFORT CURVE STRIP VI SCH ×2 (06:35→12:00)
[2019-04-17] MEDS: SODIUM CHLOR 0.9% PF (SALINE LOCK) 10ML VIAL/SYR IV SCH ×2 (06:35→13:15)
[2019-04-17] MEDS: FUROSEMIDE 40 MG/4 ML VIAL IV SCH (06:35)
--- NOTE | 2019-04-17 07:05 | NUR ---
RECD PT OFF OXYGEN, SPO2 70%. PT EDUCATED TO KEEP O2 ON. PT VERBALIZED UNDERSTANDING. PLACED PT ON 4LNC, SPO2 WENT UP TO 94%.
--- NOTE | 2019-04-17 07:50 | NUR ---
OPENING SHIFT NOTE: PATIENT OUT OF BED IN RESTROOM. EDUCATED PATIENT ON FALL PRECAUTIONS, AND USE OF OXYGEN WITH AMBULATING. PATIENT VERBALIZED UNDERSTANDING. BED IN LOWEST LOCKED POSITION, CALL LIGHT WITHIN REACH. UPDATED ON PLAN OF CARE. WILL CONTINUE TO MONITOR.
[2019-04-17 08:04] LABS: Eosinophils # (auto) 0 uL; Mean Corpuscular Hemoglobin 19.8 pg (28.0-32.0); Neutrophils # (auto) 13.5 uL; Platelet Count (auto) 331 10^3/uL (140-450)
[2019-04-17 08:07] LABS: Basophils # (auto) 0.3 uL; Basophils % (auto) 1.7 % (0.0-2.0); Eosinophils % (auto) 0.1 % (0.0-7.0); Hematocrit 30.9 % (41.0-53.0); Hemoglobin 8.7 g/dL (13.5-17.5); Lymphocytes # (auto) 0.2 uL; Lymphocytes % (auto) 1.1 % (10.0-50.0); Mean Corpuscular Hgb Conc. 28.2 g/dL (32.0-36.0); Monocytes # (auto) 0.6 uL; Monocytes % (auto) 3.9 % (0.0-12.0); Neutrophils % (auto) 93.2 % (37.0-80.0); Nucleated Red Blood Cells % 0.4 %; Red Blood Cells 4.42 10^6/uL (4.5-5.90); White Blood Cell 14.5 10^3/uL (4.4-10.8)
[2019-04-17 08:22] LABS: Calcium 7.9 mg/dL (8.5-10.1); Phosphorus 6.1 mg/dL (2.5-4.90)
--- NOTE | 2019-04-17 08:43 | NUR ---
CRITICAL LAB: CRITICAL LAB CALL RECEIVED FROM NIEVES IN LAB. BUN 93. MD Antonia MC CALLED AND MADE AWARE. NO NEW ORDERS AT THIS TIME.
[2019-04-17 09:00] VITALS: BP 113/88
[2019-04-17 09:20] VITALS: BP 113/88
[2019-04-17] MEDS: AMIODARONE HCL 200 MG TAB PO SCH (10:34)
[2019-04-17] MEDS: methylPREDNISolone SOD SUCC 125 MG/2 ML VL IV SCH (10:35)
[2019-04-17] MEDS: PANTOPRAZOLE 40 MG TAB PO SCH (10:35)
[2019-04-17] MEDS: NITROGLYCERIN 0.2MG/HR TOPICAL PATCH TD SCH (10:36)
[2019-04-17] MEDS: DOXYCYCLINE 100MG/250ML 250 ML IV SCH (10:36)
[2019-04-17] MEDS: POTASSIUM CHL 10 Meq TABLET PO SCH (12:00)
--- NOTE | 2019-04-17 12:01 | NUR ---
SPOKE WITH FAMILY REGARDING DISCHARGE PLAN. DELORIS, TO COME APPLICATIONS PACKAGER PATIENT IN APPROX 2 HOURS.
[2019-04-17 13:00] VITALS: BP 115/77
--- NOTE | 2019-04-17 14:21 | NUR ---
PATIENT DISCHARGED HOME. PATIENT LEFT WITH ALL BELONGINGS. MIDLINE CATHETER REMOVED, FULLY INTACT, MANUAL PRESSURE APPLIED. TELE BOX SENT TO CARDIO UNIT. PATIENT TAKEN DOWN TO PRIVATE AUTO WITHOUT INCIDENCE, BY [employer] VIA WHEELCHAIR. EVEN AND UNLABORED RESPIRATIONS NOTED. ALL EDUCATION MATERIAL GIVEN TO PATIENT, EMPHASIS ON MEDICATION PRESCRIPTION FULFILLMENT, AND COMPLIANCE WITH FOLLOW UP APPOINTMENTS.
--- NOTE | 2019-04-17 16:09 | NUR ---
assessment Patient is a 64 year old male who is alert and oriented. Patients cognitive abilities are intact. Prior to admission patient lived home with family and functioned with assistance. Per patient he will return home to his prior living arrangements post discharge and his Malia will transport him home. Patient informed me he has 02, fww, cane, and wheelchair for home use. Patient informed me his PCP is [facility] in [place]. Patient informed me he needs help with cooking and showering. I have referred patient to the [place] aid [facility] assist program on last visit. Patient informed me he feels safe returning home on discharge. I informed patient he has a right to speak to a social work specialist regarding all care. I informed patient he has a right to participate in any and all discharge planning. Patient has a POA and advanced directive. Patient verbalized understanding and agreed to discharge plan. Addendum: 04/17/19 at 1610 by Lucretia HOGUE Amended: Links added.
== END 2019-04-17 14:09 | disposition home or self-care (01) | DRG 291 ==
LOC: ER 04:06 → TELE 04:07 → TELE-WESTW 11:45
PROVIDERS: ADMIT Internal Medicine; ATTEND Family Medicine
DX: I13.0 Hypertensive heart and chronic kidney disease with heart failure and stage 1 through stage 4 chronic kidney disease, or unspecified chronic kidney disease (principal); I50.43 Acute on chronic combined systolic (congestive) and diastolic (congestive) heart failure; N17.0 Acute kidney failure with tubular necrosis; J18.1 Lobar pneumonia, unspecified organism; J96.21 Acute and chronic respiratory failure with hypoxia; J44.1 Chronic obstructive pulmonary disease with (acute) exacerbation; J44.0 Chronic obstructive pulmonary disease with (acute) lower respiratory infection; N18.3 Chronic kidney disease, stage 3 (moderate); E11.22 Type 2 diabetes mellitus with diabetic chronic kidney disease; D63.8 Anemia in other chronic diseases classified elsewhere; E66.9 Obesity, unspecified; E78.5 Hyperlipidemia, unspecified; F17.210 Nicotine dependence, cigarettes, uncomplicated; G47.33 Obstructive sleep apnea (adult) (pediatric); F12.90 Cannabis use, unspecified, uncomplicated; I48.0 Paroxysmal atrial fibrillation; I42.0 Dilated cardiomyopathy; Z82.5 Family history of asthma and other chronic lower respiratory diseases; Z83.2 Family history of diseases of the blood and blood-forming organs and certain disorders involving the immune mechanism; Z88.8 Allergy status to other drugs, medicaments and biological substances; Z87.11 Personal history of peptic ulcer disease; Z95.0 Presence of cardiac pacemaker; Z68.33 Body mass index [BMI] 33.0-33.9, adult; Z90.49 Acquired absence of other specified parts of digestive tract
CPT/HCPCS: 36415; 71045; 80048; 80053; 80202; 80307; 81001; 82306; 82962; 83036; 83605; 83880; 84100; 84156; 84300; 84484; 84550; 85007; 85025; 85027; 87040; 87077; 87081; 87186; 93005; 93970; 94640; 96365; 96366; 96367; 96375; G0378; J0696; J3490

== ENCOUNTER 2019-04-18 19:40 | Inpatient (IN) | payer BC ==
[~2019-04-18] VITALS: Ht 185.4 cm; Wt 116.0 kg
[2019-04-18] MEDS ORDERED: ALBUTEROL SULF 2.5 MG/0.5ML(0.5%) NEB SOLN NEB STA (19:59)
[2019-04-18] MEDS ORDERED: IPRATROPIUM BROM 0.5 MG/2.5ML INH SOL NEB ONE (20:00)
[2019-04-18] MEDS ORDERED: methylPREDNISolone SOD SUCC 125 MG/2 ML VL IV ONE (21:00)
[2019-04-18] MEDS ORDERED: FUROSEMIDE 20 MG/2 ML VIAL IV ONE (21:00)
[2019-04-18 21:10] LABS: Hematocrit 28.7 % (41.0-53.0); Hemoglobin 8.7 g/dL (13.5-17.5); Mean Corpuscular Hemoglobin 20.4 pg (28.0-32.0); Mean Corpuscular Hgb Conc. 30.4 g/dL (32.0-36.0); Mean Corpuscular Volume 67.1 fL (80.0-100.0); Platelet Count (auto) 246 10^3/uL (140-450); Red Blood Cells 4.27 10^6/uL (4.5-5.90); White Blood Cell 12.7 10^3/uL (4.4-10.8)
[2019-04-18 21:26] LABS: Urine Bacteria NONE SEEN /hpf (None Seen); Urine Blood Negative /uL (Negative); Urine Specific Gravity 1.017 (1.001-1.035); Urine WBC 1 /hpf (0 - 3)
[2019-04-18 21:26] LABS: Albumin 3.3 g/dL (3.4-5.0); BUN/Creatinine Ratio 38.8; Potassium 5.2 mmol/L (3.5-5.1)
[2019-04-18 21:29] LABS: Red Cell Distribution Width 23.5 % (11.8-14.3)
[2019-04-18 21:30] LABS: Alcohol, Urine < 3.0 mg/dL (0-5); Amphetamine Screen, Urine POSITIVE (NEGATIVE); Barbiturate Scree,Urine NEGATIVE (NEGATIVE); Benzodiazephine Screen, Urine NEGATIVE (NEGATIVE); Cocaine Screen, Urine NEGATIVE (NEGATIVE); Opiate Scree,Urine NEGATIVE (NEGATIVE); Phencyclidine Screen, Urine NEGATIVE (NEGATIVE)
[2019-04-18 21:30] LABS: Band Neutrophils % (manual) 0; Basophils % (manual) 0 (0.0-2.0); Blast Cells 0; Eosinophils % (manual) 0 (0-7); Metamyelocytes % 0; Myelocytes % 0; Promyelocytes % 0; Reactive Lymphocytes 0
[2019-04-18 21:31] LABS: Bilirubin, Total 0.6 mg/dL (0.2-1.0); INR 1.2 (0.9-1.15); Total Protein 6.1 g/dL (6.4-8.2)
[2019-04-18 21:38] LABS: Cannabinoid Screen, Urine POSITIVE (NEGATIVE)
[2019-04-18 23:23] LABS: Lymphocytes % (manual) 1 (10.0-50.0)
[2019-04-18 23:24] LABS: Monocytes % (manual) 16 (0-12)
[2019-04-19] MEDS ORDERED: MORPHINE SULF INJ 2 MG/ML SYRINGE 1ML IV PRN (02:30)
[2019-04-19] MEDS ORDERED: ACETAMINOPHEN 325 MG TAB PO PRN (02:30)
[2019-04-19] MEDS ORDERED: TEMAZEPAM 15 MG CAP PO PRN (02:30)
[2019-04-19] MEDS ORDERED: NITROGLYCERIN 0.4 MG SL TAB SL PRN (02:30)
[2019-04-19] MEDS ORDERED: ONDANSETRON HCL 4 MG/2 ML VIAL IV PRN (02:30)
[2019-04-19] MEDS ORDERED: LEVOFLOXACIN 250MG 50 ML IV SCH (03:30)
--- NOTE | 2019-04-19 05:00 | NUR ---
Telemetry admit from ER MARTHA LAWRENCE admitted to Telemetry unit after SBAR received. Patient oriented to JAYSON BELTRAN RN primary RN, unit, room, bed, and unit policies regarding patient care and visiting hours. Patient now on continuous telemetry monitoring, tele box # [id number] and telemetry reading on arrival to unit is SR. Patient placed on bedside oxygen, weighed by bedscale and encouraged to call if they need something. All questions and concerns addressed, patient verbalized understanding. Patient noted to have medications at bedside but refused to let go of his medications to be taken to the pharmacy. Patient stated, "There is no way in hell anyone is getting a hold of my medications". Patient informed his family will have to take his medications home today when they come to visit.
[2019-04-19 05:05] VITALS: BP 126/66
[2019-04-19] MEDS: FUROSEMIDE 40 MG/4 ML VIAL IV SCH ×2 (05:35→17:33)
[2019-04-19] MEDS: IPRATROPIUM BROM 0.5 MG/2.5ML INH SOL NEB SCH ×3 (07:15→19:24)
[2019-04-19] MEDS: ALBUTEROL SULF 2.5 MG/0.5ML(0.5%) NEB SOLN NEB SCH ×3 (07:16→19:24)
[2019-04-19 08:04] VITALS: BP 136/82
[2019-04-19 10:01] VITALS: BP 136/82
[2019-04-19] MEDS: AMIODARONE HCL 200 MG TAB PO SCH ×2 (10:05→21:44)
[2019-04-19] MEDS: CARVEDILOL 3.125 MG TAB PO SCH ×2 (10:06→21:44)
[2019-04-19 12:21] VITALS: BP 113/65
[2019-04-19 16:33] VITALS: BP 128/67
[2019-04-19] MEDS ORDERED: RIVAROXABAN 15 MG TAB PO SCH (18:00)
[2019-04-19] MEDS ORDERED: RIVAROXABAN 20 MG TAB PO SCH (18:00)
--- NOTE | 2019-04-19 19:03 | NUR ---
Respiratory note: PT FOUND ON RA UPON ENTERING ROOM, SPO2 82% ON RA, O2 RUNNING AT 4LPM. PT STATES HE WEARS O2 WHEN HE NEEDS IT. INFORMED PT OF IMPORTANCE OF WEARING OXYGEN, PT VERBALIZED UNDERSTANDING.
--- NOTE | 2019-04-19 19:08 | NUR ---
Opening Shift Note Assumed care of patient, awake and alert x4. No S/S of distress/SOB or pain. Call light is within reach, side rails up x2, bed is in lowest position. Instructed on POC and to call for assist PRN. All questions and concerns answered, will continue to monitor for changes Q1hr and PRN.
[2019-04-19] MEDS: DOXYCYCLINE 100MG/250ML 250 ML IV SCH (21:44)
[2019-04-19 22:00] VITALS: BP 150/69
--- NOTE | 2019-04-19 23:30 | NUR ---
IV removal from right hand IV DC'd with clean sterile technique, catheter fully intact. Pressure dressing applied to site. Patient tolerated well.
--- NOTE | 2019-04-19 23:39 | NUR ---
IV insertion to left hand IV access obtained, via clean sterile technique by inserting 22 gauge catheter at the left hand after 1 attempt(s). IV secured properly. No trauma to site. Patient tolerated well.
[2019-04-20] MEDS: ALBUTEROL SULF 2.5 MG/0.5ML(0.5%) NEB SOLN NEB SCH ×3 (00:29→11:29)
[2019-04-20] MEDS: IPRATROPIUM BROM 0.5 MG/2.5ML INH SOL NEB SCH ×3 (00:29→11:29)
--- NOTE | 2019-04-20 04:39 | NUR ---
IV insertion to right hand/removal from left hand IV access obtained, via clean sterile technique by inserting 24 gauge catheter at the right hand after 13 attempt(s). IV secured properly. No trauma to site. Patient tolerated well. Previous Iv to the left hand was removed by the patient, catheter was intact and placed in the sharps container and pressure dressing was applied to the site.
[2019-04-20 05:00] VITALS: BP 134/91
[2019-04-20] MEDS: FUROSEMIDE 40 MG/4 ML VIAL IV SCH (05:58)
--- NOTE | 2019-04-20 07:36 | NUR ---
PATIENT AWAKE ALERT ORIENTED TIMES 4 DENIES ANY PAIN IV CATHETER ON BED PATIENT SAID HE REMOVED IT. HE WANTS TO CALL HIS TO PICK HIM UP I TOLD HIM IT WOULD BE AMA. HE VERBALIZED UNDERSTANDING. TELE SENT BACK TO ICU. NO SIGNS OF DISTRESS.
[2019-04-20 08:47] VITALS: BP 121/69
[2019-04-20] MEDS ORDERED: cefTRIAXone 1GM/50ML D5W 50 ML IV SCH (09:00)
[2019-04-20] MEDS: DOXYCYCLINE 100MG/250ML 250 ML IV SCH (10:00)
[2019-04-20] MEDS: CARVEDILOL 3.125 MG TAB PO SCH (10:00)
[2019-04-20] MEDS: AMIODARONE HCL 200 MG TAB PO SCH (10:34)
--- NOTE | 2019-04-20 11:30 | NUR ---
PATIENT IS DISCHARGED UNABLE TO CONTACT HIS HE SAID SHE HAS A NEW PHONE NUMBER. HE SAID HE HAS HOUSE KEYS TO GET INTO HIS HOUSE JUST NEEDS TRANSPORTATION HOME. I LEFT A MESSAGE FOR [facility] TO SEE I HE CAN HAVE [facility].
[2019-04-20 12:11] VITALS: BP 132/79
--- NOTE | 2019-04-20 12:37 | NUR ---
Discharge instructions given as ordered. Encourage to follow up with PMD as instructed. All questions and concerns addressed. Patient verbalized understanding. Medication reconciliation form completed and copy given to patient. Patient taken to [facility] via wheelchair with all personal belongings, accompanied by staff member. No distress noted at time of departure.
== END 2019-04-20 12:40 | disposition home or self-care (01) | DRG 189 ==
LOC: EDBD 19:40 → ER 19:45 → TELE 19:46 → TELE-CENTR 04-19 05:10
PROVIDERS: ADMIT Nurse Practitioner; ATTEND Family Medicine
DX: J96.20 Acute and chronic respiratory failure, unspecified whether with hypoxia or hypercapnia (principal); J18.1 Lobar pneumonia, unspecified organism; I50.43 Acute on chronic combined systolic (congestive) and diastolic (congestive) heart failure; I13.0 Hypertensive heart and chronic kidney disease with heart failure and stage 1 through stage 4 chronic kidney disease, or unspecified chronic kidney disease; J44.1 Chronic obstructive pulmonary disease with (acute) exacerbation; J44.0 Chronic obstructive pulmonary disease with (acute) lower respiratory infection; J91.8 Pleural effusion in other conditions classified elsewhere; I42.0 Dilated cardiomyopathy; N17.9 Acute kidney failure, unspecified; F15.129 Other stimulant abuse with intoxication, unspecified; N18.9 Chronic kidney disease, unspecified; D64.9 Anemia, unspecified; E87.5 Hyperkalemia; F12.90 Cannabis use, unspecified, uncomplicated; F17.210 Nicotine dependence, cigarettes, uncomplicated; G47.30 Sleep apnea, unspecified; I48.0 Paroxysmal atrial fibrillation; Z91.19 Patient's noncompliance with other medical treatment and regimen; Z95.0 Presence of cardiac pacemaker; Z79.01 Long term (current) use of anticoagulants; Z87.11 Personal history of peptic ulcer disease; Z82.5 Family history of asthma and other chronic lower respiratory diseases; Z90.49 Acquired absence of other specified parts of digestive tract
CPT/HCPCS: 36415; 36600; 71045; 80053; 80307; 81001; 82805; 83605; 83880; 84484; 84550; 85007; 85027; 85379; 85610; 85730; 87040; 87081; 87086; 87088; 93005; 94640; 96365; 96375; G0378; J3490

== ENCOUNTER 2019-04-29 19:08 | Emergency (ER) | payer BC ==
[~2019-04-29] VITALS: Ht 182.9 cm; Wt 136.1 kg
[2019-04-29 19:12] VITALS: BP 90/63
== END 2019-04-29 20:21 | disposition expired ==
LOC: EDBD 19:08 → ER 19:11
DX: I46.9 Cardiac arrest, cause unspecified (principal); I13.0 Hypertensive heart and chronic kidney disease with heart failure and stage 1 through stage 4 chronic kidney disease, or unspecified chronic kidney disease; N18.9 Chronic kidney disease, unspecified; I50.9 Heart failure, unspecified; F17.210 Nicotine dependence, cigarettes, uncomplicated; F12.90 Cannabis use, unspecified, uncomplicated; Z88.5 Allergy status to narcotic agent; Z88.8 Allergy status to other drugs, medicaments and biological substances; Z79.899 Other long term (current) drug therapy
CPT/HCPCS: 92950